=== PATIENT | female | born 1945 | race Caucasian/White ===

== ENCOUNTER → 2016-08-14 | Outpatient (CLI) | payer MEDICARE, OTHER ==
[~2016-08-14] MED LIST: Iopamidol 755 MG/ML 500 ML Multipack Bottle IVPUSH STA
--- NOTE | 2016-08-14 18:31 | CT ---
EXAMINATION: CT chest, abdomen and pelvis contrast HISTORY: Malignant neoplasm of the uterus COMPARISON: None TECHNIQUE: Axial CT images obtained through the chest, abdomen, and pelvis following the administrat ion of 100 mL of Isovue-370 in the right antecubital fossa. Coronal and sagittal reconstructions obt ained. FINDINGS: Chest: The lungs are clear without focal consolidation. No pleural effusion or pneumothorax. The hea rt is normal in size without a significant pericardial effusion. Mild coronary artery calcifications are noted. The thoracic aorta is normal in caliber. The main and central pulmonary arteries are pat ent. The central airways are clear. There is a right-sided portacatheter noted. Abdomen: The liver has a mildly nodular contour. Cholecystectomy clips are noted. The spleen and adr enal glands appear normal. The pancreas is normal. There is no bulky retroperitoneal lymphadenopathy or abdominal ascites. The kidneys enhance and function symmetrically without evidence of obstructive uropathy. Pelvis: The large and small bowel are normal in caliber without evidence of obstruction. Mild divert iculosis without evidence of diverticulitis. The appendix appears normal. No bulky pelvic lymphadeno karon or free pelvic fluid. Hysterectomy. The urinary bladder is mostly decompressed. No suspicious osseous abnormalities. IMPRESSION: 1. Findings within the chest, abdomen, or pelvis. 2. No evidence of recurrent or metastatic disease. 3. Mild diverticulosis without evidence of diverticulitis.
== END ==
LOC: MW.CT 10:27
PROVIDERS: ATTEND Internal Medicine Hematology & Oncology
DX: C55 Malignant neoplasm of uterus, part unspecified (principal); K57.90 Diverticulosis of intestine, part unspecified, without perforation or abscess without bleeding
CPT/HCPCS: 71260; 74177; Q9967

== ENCOUNTER 2018-05-09 06:20 | Day surgery (SDC) | payer MEDICARE, OTHER ==
[~2018-05-09 06:20] MED LIST changes: +Clindamycin Phosphate in D5W 600 MG in Premix Bag 50 BAG IV ONE; -Iopamidol 755 MG/ML 500 ML Multipack Bottle IVPUSH STA; +Lactated Ringers 1,000 ML IV SCH; +Sodium Chloride 0.9% 10 ML Syringe FLUSH PRN; +Sodium Chloride 0.9% 2.5 ML Syringe FLUSH PRN
[2018-05-09] MEDS ORDERED: Clindamycin Phosphate in D5W 50 ML ONE (06:58)
--- NOTE | 2018-05-09 07:16 | PCM.PREANE ---
Preanesthetic Assessment - Anesthesia/Transfusion/Family Hx Anesthesia History: Prior Anesthesia Without Reaction Family History of Anesthesia Reaction: No Transfusion History: Prior Transfusion Without Reaction Intubation History: Unknown - Review of Systems General: No Symptoms Pulmonary: No Symptoms Cardiovascular: No Symptoms Gastrointestinal: No Symptoms Neurological: No Symptoms Other: Reports: None - Physical Assessment O2 Sat by Pulse Oximetry: 97 Respiratory Rate: 16 Vital Signs: Last Vital Signs Temp 36.2 C 05/09/18 06:52 Pulse 90 05/09/18 06:52 Resp 16 05/09/18 06:52 BP 133/75 05/09/18 06:52 Pulse Ox 97 05/09/18 06:52 Height: 1.57 m Weight: 80.286 kg ASA Class: 3 Mental Status: Alert & Oriented x3 Airway Class: Mallampati = 2 Dentition: Reports: Normal Dentition, [place](s) (multiple on back side) Thyro-Mental Finger Breadths: 3 Mouth Opening Finger Breadths: 2 ROM/Head Extension: Limited/Partial Lungs: Clear to Auscultation, Normal Respiratory Effort Cardiovascular: Regular Rate, Regular Rhythm - Lab Values: Laboratory Last Values POC Glucose 157 mg/dL (60-110) H 05/09/18 06:48 - Allergies Allergies/Adverse Reactions: Allergies Allergy/AdvReac Type Severity Reaction Status Date / Time acetaminophen [From Percocet] Allergy Cannot Verified 05/08/18 08:10 Remember meperidine [From Demerol] Allergy Headache Verified 05/07/18 07:58 oxycodone [From Percocet] Allergy Cannot Verified 05/08/18 08:10 Remember Penicillins Allergy Other Verified 05/07/18 07:58 - Blood Blood Available: No - Anesthesia Plan Pre-Op Medication Ordered: None - Acknowledgements Anesthesia Type Planned: MAC Pt an Appropriate Candidate for the Planned Anesthesia: Yes Alternatives and Risks of Anesthesia Discussed w Pt/Guardian: Yes Pt/Guardian Understands and Agrees with Anesthesia Plan: Yes PreAnesthesia Questionnaire HEENT History: Reports: Other (See Below) Other HEENT History: wears glasses Cardiovascular History: Reports: Hypertension Respiratory History: Reports: COPD, Sleep Apnea, Other (See Below) Other Respiratory History: not useing CPAP at present as it is not working, denies COPD, smokes less than 1/2 pk per day Gastrointestinal History: Reports: Hepatitis 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, has been treated Genitourinary History: Reports: None 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: Musculoskeletal History: Reports: Arthritis, Fracture Other Musculoskeletal History: hx of fx left hand Neurological History: Reports: None Psychiatric History: Reports: Depression Endocrine/Metabolic History: Reports: Diabetes, Type II (A1c around 7), Hypothyroidism, Obesity/BMI 30+ Hematologic History: Reports: Blood Transfusion(s) Immunologic History: Reports: None Oncologic (Cancer) History: Reports: Uterine Dermatologic History: Reports: None - Infectious Disease History Infectious Disease History: Reports: Chicken Pox, Hepatitis non A,B,C, Influenza , Measles, Mumps - Past Surgical History Head Surgeries/Procedures: Reports: None HEENT Surgical History: Reports: Cataract Surgery, Tonsillectomy Other HEENT Surgeries/Procedures: cataract surgery 05/07/18 Cardiovascular Surgical History: Reports: None Respiratory Surgical History: Reports: None GI Surgical History: Reports: Cholecystectomy Female Surgical History: Reports: Breast Biopsy, D&C, Hysterectomy, Salpingo- Oophorectomy Other Female Surgeries/Procedures: Omentumectomy, pelvic lymph node dissection Endocrine Surgical History: Reports: None Neurological Surgical History: Reports: None Musculoskeletal Surgical History: Reports: Carpal Tunnel, Knee Replacement, Shoulder Surgery Other Musculoskeletal Surgeries/Procedures:: left TKA, right RTCR, bilateral bunionectomy Oncologic Surgical History: Reports: Biopsy of Breast, Other (See Below) Other Oncologic Surgeries/Procedures: hysterectomy, BSO, omentumectomy, lymph node dissection Dermatological Surgical History: Reports: None - SUBSTANCE USE Smoking Status *Q: Light Tobacco Smoker Tobacco Use Within Last Twelve Months: Cigarettes Recreational Drug Use History: No - HOME MEDS Home Medications: Home Meds Furosemide [Lasix] 20 mg PO DAILY 04/29/16 [History] Hydrochlorothiazide 25 mg PO DAILY 04/29/16 [History] Insulin Aspart [NovoLOG] 5 unit SUBCUT DAILY 04/29/16 [History] Insulin Detemir [Levemir] 10 unit SQ DAILY 04/29/16 [History] Levothyroxine [Synthroid] 100 mcg PO DAILY 04/29/16 [History] PARoxetine [Paxil] 40 mg PO DAILY 04/29/16 [History] SitaGLIPtin [Januvia] 100 mg PO DAILY 04/29/16 [History] Spironolactone [Aldactone] 25 mg PO DAILY 04/29/16 [History] azaTHIOprine [Azathioprine] 50 mg PO DAILY 04/29/16 [History] Enoxaparin Sodium [Lovenox] 1 injection SUBCUT DAILY 05/07/18 [History] - CURRENT (IN HOUSE) MEDS Current Meds: Current Medications Lactated Ringer's (Ringers, Lactated) 1,000 mls @ 125 mls/hr IV ASDIRECTED MILAGROS Last Admin: 05/09/18 06:56 Dose: 125 mls/hr Sodium Chloride (Saline Flush) 10 ml FLUSH ASDIRECTED PRN PRN Reason: Keep Vein Open Sodium Chloride (Saline Flush) 2.5 ml FLUSH ASDIRECTED PRN PRN Reason: Keep Vein Open Discontinued Medications Clindamycin Phosphate 600 mg/ (Premix) 50 mls @ 100 mls/hr IV ONETIME ONE Stop: 05/06/18 09:13 Clindamycin Phosphate (Cleocin In D5w) Confirm Administered Dose 50 mls @ as directed .ROUTE .STK-MED ONE Stop: 05/09/18 06:59
[2018-05-09] MEDS ORDERED: Lidocaine 2% 5 ML SDV ONE (07:26)
[2018-05-09] MEDS ORDERED: Propofol 200 MG/20 ML SDV ONE (07:26)
[2018-05-09] MEDS ORDERED: Lidocaine 1% 20 ML MDV ONE (07:26)
[2018-05-09] MEDS ORDERED: Bupivacaine 0.5% 10 ML SDV ONE (07:37)
[2018-05-09] MEDS ORDERED: Octyl 2-Cyanoacrylate 1 Tube ONE (08:40)
--- NOTE | 2018-05-09 09:02 | PCM.OPNOTE ---
- General Post-Op/Procedure Note Date of Surgery/Procedure: 05/09/18 Operative Procedure(s): Right port a cath removal Findings: RIJ port a cath intact Pre Op Diagnosis: Port a cath dysfunction Post-Op Diagnosis: same Anesthesia Technique: MAC Primary Surgeon: Jess Fajardo Condition: Good
[2018-05-09 09:42] VITALS: BP 136/69
--- NOTE | 2018-05-09 18:59 | OR ---
SURGEON: YOSELYN MICHAEL MD DATE OF PROCEDURE: 05/09/2018 PREOPERATIVE DIAGNOSIS: Port-A-Cath dysfunction. POSTOPERATIVE DIAGNOSIS: Port-A-Cath dysfunction. PROCEDURE PERFORMED: Removal of right internal jugular Port-A-Cath. ANESTHESIA: MAC. ESTIMATED BLOOD LOSS: 5 mL. FINDINGS: Removal of right internal jugular Port-A-Cath. COMPLICATIONS: None. INDICATIONS: The patient is a 72-year-old female who had right internal jugular Port-A-Cath placed for chemotherapy. She is no longer on chemotherapy and the port is no longer functioning. The decision was made to remove it. I explained the procedure, expected perioperative course, and risks including bleeding, infection, or damage to surrounding structures. The patient verbalized understanding and wishes to proceed. PROCEDURE IN DETAIL: The patient was brought into the OR and placed on the OR table in supine position. A time-out was completed verifying the patient's name, age, date of , allergies, and procedure to be performed. Monitored anesthesia care was induced. The right neck and chest were prepped and draped in usual standard fashion. I anesthetized the area overlying the Port-A-Cath device with 1% lidocaine plain. A 15 blade was used to make an incision over the patient's scar. Cautery was used to dissect down to the level of the subcutaneous fat. I immediately encountered the scar capsule around Port-A-Cath device. The scar capsule was taken down using Metzenbaum scissors as well as cautery. Once the port was freed from the surrounding tissue. I applied gentle pressure and removed the Port-A-Cath tubing from the internal jugular vein. The port was completely removed and placed on the back table. Pressure was held over the right internal jugular vein for approximately one minute. I then inspected the Port-A-Cath device and it appeared to be intact. Cautery was used to achieve hemostasis at the right chest wall site. I then closed the subcutaneous fat layer with interrupted 3-0 Vicryl sutures. I closed the skin with a running 4-0 Monocryl stitch. I placed Dermabond over the top of the incision and placed a sterile dressing over the top of that. The patient tolerated the procedure well and was taken to PACU in stable condition. All counts were complete and correct at the end of the case. CAMI / KEZIA /[id number]
== END 2018-05-09 09:40 | disposition home or self-care (01) ==
LOC: MW.SDS 06:20
PROVIDERS: ATTEND Surgery
DX: T82.514A Breakdown (mechanical) of infusion catheter, initial encounter (principal); C54.1 Malignant neoplasm of endometrium; I10 Essential (primary) hypertension; J44.9 Chronic obstructive pulmonary disease, unspecified; E03.9 Hypothyroidism, unspecified; E11.9 Type 2 diabetes mellitus without complications; E66.9 Obesity, unspecified; Z68.32 Body mass index [BMI] 32.0-32.9, adult; G47.30 Sleep apnea, unspecified; Z99.89 Dependence on other enabling machines and devices; F32.9 Major depressive disorder, single episode, unspecified; M19.90 Unspecified osteoarthritis, unspecified site; Z79.84 Long term (current) use of oral hypoglycemic drugs; Z79.890 Hormone replacement therapy; Z79.899 Other long term (current) drug therapy; Z88.0 Allergy status to penicillin; Z88.5 Allergy status to narcotic agent; Z88.6 Allergy status to analgesic agent; Z87.891 Personal history of nicotine dependence
CPT/HCPCS: 36590; 82962; A9270; J2001; J2704; J3490; J7120

== ENCOUNTER 2018-09-18 09:43 | Inpatient (IN) | payer MEDICARE, OTHER ==
[2018-09-18] MEDS ORDERED: Sodium Chloride 0.9% 1,000 ML IV ONE (09:59)
[2018-09-18] MEDS ORDERED: Sodium Chloride 0.9% 10 ML Syringe FLUSH PRN (09:59)
[2018-09-18] MEDS ORDERED: Sodium Chloride 0.9% 2.5 ML Syringe FLUSH PRN (09:59)
--- NOTE | 2018-09-18 10:12 | EDM.PDOC ---
ED HPI GENERAL MEDICAL PROBLEM - General Chief Complaint: Gastrointestinal Problem Stated Complaint: WEAKNESS Time Seen by Provider: 09/18/18 09:55 - History of Present Illness INITIAL COMMENTS - FREE TEXT/NARRATIVE: HISTORY AND PHYSICAL: History of present illness: Patient is 73-year-old white female history of advanced metastatic uterine cancer presents a concern of generalized weakness she's had associated nausea vomiting diarrhea she denies fever chills denies abdominal pain denies chest pain. Review of systems: As per history of present illness and below otherwise all systems reviewed and negative. Past medical history: As per history of present illness and as reviewed below otherwise noncontributory. Surgical history: As per history of present illness and as reviewed below otherwise noncontributory. Social history: No reported history of drug or alcohol abuse. Family history: As per history of present illness and as reviewed below otherwise noncontributory. Physical exam: HEENT: Atraumatic, normocephalic, pupils reactive, negative for conjunctival pallor or scleral icterus, mucous membranes dry, throat clear, neck supple, nontender, trachea midline. Lungs: Clear to auscultation, breath sounds equal bilaterally, chest nontender. Heart: S1S2, regular, negative for clicks, rubs, or JVD. Abdomen: Soft, nondistended, no localized tenderness. Negative for masses or hepatosplenomegaly. Negative for costovertebral tenderness. Pelvis: Stable nontender. Genitourinary: Deferred. Rectal: Deferred. Extremities: Atraumatic, negative for cords or calf pain. Neurovascular unremarkable. Neuro: Awake, alert, oriented. Follows commands moves all extremities limited grossly nonfocal exam. Diagnostics: CBC CMP troponin UA blood culture 2 lactic acid acute abdominal series with chest x-ray stool for C&S O&P C. difficile EKG Therapeutics: Saline 1 L bolus Impression: #1 history of advanced uterine cancer with metastasis #2 generalized weakness # 3 vomiting/diarrhea Definitive disposition and diagnosis as appropriate pending reevaluation and review of above. - Related Data Allergies Allergy/AdvReac Type Severity Reaction Status Date / Time acetaminophen [From Percocet] Allergy Cannot Verified 09/18/18 09:45 Remember meperidine [From Demerol] Allergy Headache Verified 09/18/18 09:45 oxycodone [From Percocet] Allergy Cannot Verified 09/18/18 09:45 Remember Penicillins Allergy Other Verified 09/18/18 09:45 Home Meds: Home Meds Furosemide [Lasix] 20 mg PO DAILY 04/29/16 [History] Hydrochlorothiazide 25 mg PO DAILY 04/29/16 [History] Insulin Aspart [NovoLOG] 0 - 5 unit SUBCUT BIDAC 04/29/16 [History] Insulin Detemir [Levemir] 55 unit SQ DAILY 04/29/16 [History] Levothyroxine [Synthroid] 100 mcg PO DAILY 04/29/16 [History] PARoxetine [Paxil] 20 mg PO DAILY 04/29/16 [History] SitaGLIPtin [Januvia] 100 mg PO DAILY 04/29/16 [History] Spironolactone [Aldactone] 25 mg PO BID 04/29/16 [History] azaTHIOprine [Azathioprine] 100 mg PO DAILY 04/29/16 [History] Acetaminophen [Tylenol Extra Strength] 500 mg PO TID PRN 09/18/18 [History] Acetaminophen with Codeine [Tylenol with Codeine #3 Tablet] 1 - 2 tab PO Q4H PRN 09/18/18 [History] Acetaminophen/Diphenhydramine [Tylenol Pm Ex-Strength Caplet] 1 - 2 tab PO BEDTIME PRN 09/18/18 [History] Milk Thistle 1 cap PO DAILY 09/18/18 [History] Ondansetron [Zofran ODT] 4 mg PO Q8H PRN 09/18/18 [History] Past Medical History HEENT History: Reports: Other (See Below) Other HEENT History: wears glasses Cardiovascular History: Reports: Hypertension Respiratory History: Reports: COPD, Sleep Apnea, Other (See Below) Other Respiratory History: not useing CPAP at present as it is not working, denies COPD, smokes less than 1/2 pk per day Gastrointestinal History: Reports: Hepatitis 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, has been treated Genitourinary History: Reports: 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: Musculoskeletal History: Reports: Arthritis, Fracture Other Musculoskeletal History: hx of fx left hand Neurological History: Reports: None Psychiatric History: Reports: Depression Endocrine/Metabolic History: Reports: Diabetes, Type II (A1c around 7), Hypothyroidism, Obesity/BMI 30+ Hematologic History: Reports: Blood Transfusion(s) Immunologic History: Reports: None Oncologic (Cancer) History: Reports: Uterine Dermatologic History: Reports: None - Infectious Disease History Infectious Disease History: Reports: Chicken Pox, Hepatitis non A,B,C, Influenza , Measles, Mumps - Past Surgical History Head Surgeries/Procedures: Reports: None HEENT Surgical History: Reports: Cataract Surgery, Tonsillectomy Other HEENT Surgeries/Procedures: cataract surgery 05/07/18 Cardiovascular Surgical History: Reports: None Respiratory Surgical History: Reports: None GI Surgical History: Reports: Cholecystectomy Female Surgical History: Reports: Breast Biopsy, D&C, Hysterectomy, Salpingo- Oophorectomy Other Female Surgeries/Procedures: Omentumectomy, pelvic lymph node dissection Endocrine Surgical History: Reports: None Neurological Surgical History: Reports: None Musculoskeletal Surgical History: Reports: Carpal Tunnel, Knee Replacement, Shoulder Surgery Other Musculoskeletal Surgeries/Procedures:: left TKA, right RTCR, bilateral bunionectomy Oncologic Surgical History: Reports: Biopsy of Breast, Other (See Below) Other Oncologic Surgeries/Procedures: hysterectomy, BSO, omentumectomy, lymph node dissection Dermatological Surgical History: Reports: None Social & Family History - Family History Family Medical History: Noncontributory HEENT: Reports: Impaired Vision Cardiac: Reports: Heart Failure OBGYN: Reports: Musculoskeletal: Reports: Other (See Below) Other Musculoskeletal Family History: polio Endocrine/Metabolic: Reports: Diabetes, type II Oncologic: Reports: Prostate, Uterine - Caffeine Use Caffeine Use: Reports: Coffee ED ROS GENERAL - Review of Systems Review Of Systems: ROS reveals no pertinent complaints other than HPI. ED EXAM, GENERAL - Physical Exam Exam: See Below (dictation) Course - Vital Signs Last Recorded V/S: Last Vital Signs Temp 35.8 C 09/18/18 09:46 Pulse 102 H 09/18/18 09:46 Resp 18 09/18/18 09:46 BP 117/76 09/18/18 09:46 Pulse Ox 92 L 09/18/18 09:46 - Orders/Labs/Meds Orders: Active Orders 24 hr Category Date Time Status Cardiac Monitoring [RC] . DIRECTED Care 09/18/18 09:58 Active EKG Documentation Completion [RC] STAT Care 09/18/18 09:58 Active Oxygen Therapy, ED [RC] ASDIRECTED Care 09/18/18 09:58 Active CDIFF TOX A+B [OP] Stat Lab 09/18/18 11:15 Received CULTURE BLOOD [BC] Stat Lab 09/18/18 10:17 Received CULTURE BLOOD [BC] Stat Lab 09/18/18 10:26 Received CULTURE STOOL + CAMPY+SHIGATOX [RM] Stat Lab 09/18/18 11:15 Received UA RFX RENÉ AND CULT IF INDIC [URIN] Stat Lab 09/18/18 11:22 Ordered Levofloxacin/Dextrose 5%-Water [Levaquin in D5W 750 MG/ Med 09/18/18 11:33 Active 150 ML] 750 mg Premix Bag 1 bag IV ONETIME Sodium Chloride 0.9% [Saline Flush] Med 09/18/18 09:59 Active 10 ml FLUSH ASDIRECTED PRN Sodium Chloride 0.9% [Saline Flush] Med 09/18/18 09:59 Active 2.5 ml FLUSH ASDIRECTED PRN Blood Culture x2 Reflex Set [OM.PC] Stat Ot 09/18/18 09:58 Ordered Isolation [COMM] Stat Ot 09/18/18 10:09 Ordered Saline Lock Insert [OM.PC] Stat Ot 09/18/18 09:58 Ordered Medication Orders Levofloxacin/Dextrose 750 mg/ (Premix) 150 mls @ 100 mls/hr IV ONETIME ONE Stop: 09/18/18 13:02 Sodium Chloride (Saline Flush) 10 ml FLUSH ASDIRECTED PRN PRN Reason: Keep Vein Open Last Admin: 09/18/18 10:31 Dose: 10 ml Sodium Chloride (Saline Flush) 2.5 ml FLUSH ASDIRECTED PRN PRN Reason: Keep Vein Open Last Admin: 09/18/18 10:31 Dose: 2.5 ml Labs: Laboratory Tests 09/18/18 09/18/18 09/18/18 Range/Units 09:58 09:58 09:58 WBC 2.04 L (4.0-11.0) K/uL RBC 3.67 L (4.30-5.90) M/uL Hgb 12.8 (12.0-16.0) g/dL Hct 37.9 (36.0-46.0) % MCV 103.3 H (80.0-98.0) fL MCH 34.9 H (27.0-32.0) pg MCHC 33.8 (31.0-37.0) g/dL RDW Std Deviation 57.3 (28.0-62.0) fl RDW Coeff of Ashlee 15 (11.0-15.0) % Plt Count 204 (150-400) K/uL MPV 11.80 (7.40-12.00) fL Neut % (Auto) 67.2 (48.0-80.0) % Lymph % (Auto) 17.6 (16.0-40.0) % [place] % (Auto) 8.8 (0.0-15.0) % Eos % (Auto) 5.9 (0.0-7.0) % Baso % (Auto) 0.5 (0.0-1.5) % Neut # (Auto) 1.4 (1.4-5.7) K/uL Lymph # (Auto) 0.4 L (0.6-2.4) K/uL [place] # (Auto) 0.2 (0.0-0.8) K/uL Eos # (Auto) 0.1 (0.0-0.7) K/uL Baso # (Auto) 0.0 (0.0-0.1) K/uL Nucleated RBC % 0.0 /100WBC Nucleated RBCs # 0 K/uL INR 0.98 Lactate (0.20-2.00) mmol/L Sodium 127 L (136-145) mmol/L Potassium 3.6 (3.5-5.1) mmol/L Chloride 91 L (98-107) mmol/L Carbon Dioxide 23.3 (21.0-32.0) mmol/L BUN 57 H (7.0-18.0) mg/dL Creatinine 1.5 H (0.6-1.0) mg/dL Est Cr Clr Drug Dosing 26.42 mL/min Estimated GFR (MDRD) 34.0 ml/min Glucose 163 H (74-106) mg/dL Calcium 9.0 (8.5-10.1) mg/dL Total Bilirubin 0.5 (0.2-1.0) mg/dL AST 16 (15-37) IU/L ALT 12 L (14-63) IU/L Alkaline Phosphatase 122 H (46-116) U/L Troponin I < 0.050 (0.000-0.056) ng/mL B-Natriuretic Peptide (<100) PG/ML Total Protein 8.1 (6.4-8.2) g/dL Albumin 2.7 L (3.4-5.0) g/dL Globulin 5.4 H (2.6-4.0) g/dL Albumin/Globulin Ratio 0.5 L (0.9-1.6) 09/18/18 09/18/18 Range/Units 09:58 09:58 WBC (4.0-11.0) K/uL RBC (4.30-5.90) M/uL Hgb (12.0-16.0) g/dL Hct (36.0-46.0) % MCV (80.0-98.0) fL MCH (27.0-32.0) pg MCHC (31.0-37.0) g/dL RDW Std Deviation (28.0-62.0) fl RDW Coeff of Ashlee (11.0-15.0) % Plt Count (150-400) K/uL MPV (7.40-12.00) fL Neut % (Auto) (48.0-80.0) % Lymph % (Auto) (16.0-40.0) % [place] % (Auto) (0.0-15.0) % Eos % (Auto) (0.0-7.0) % Baso % (Auto) (0.0-1.5) % Neut # (Auto) (1.4-5.7) K/uL Lymph # (Auto) (0.6-2.4) K/uL [place] # (Auto) (0.0-0.8) K/uL Eos # (Auto) (0.0-0.7) K/uL Baso # (Auto) (0.0-0.1) K/uL Nucleated RBC % /100WBC Nucleated RBCs # K/uL INR Lactate 1.4 (0.20-2.00) mmol/L Sodium (136-145) mmol/L Potassium (3.5-5.1) mmol/L Chloride (98-107) mmol/L Carbon Dioxide (21.0-32.0) mmol/L BUN (7.0-18.0) mg/dL Creatinine (0.6-1.0) mg/dL Est Cr Clr Drug Dosing mL/min Estimated GFR (MDRD) ml/min Glucose (74-106) mg/dL Calcium (8.5-10.1) mg/dL Total Bilirubin (0.2-1.0) mg/dL AST (15-37) IU/L ALT (14-63) IU/L Alkaline Phosphatase (46-116) U/L Troponin I (0.000-0.056) ng/mL B-Natriuretic Peptide 6 (<100) PG/ML Total Protein (6.4-8.2) g/dL Albumin (3.4-5.0) g/dL Globulin (2.6-4.0) g/dL Albumin/Globulin Ratio (0.9-1.6) Meds: Medications Generic Name Dose Route Start Last Admin Trade Name Freq PRN Reason Stop Dose Admin Levofloxacin/Dextrose 750 mg/ 150 mls @ 100 mls/hr 09/18/18 11:33 Premix IV 09/18/18 13:02 ONETIME ONE Sodium Chloride 10 ml 09/18/18 09:59 09/18/18 10:31 Saline Flush FLUSH 10 ml ASDIRECTED PRN Administration Keep Vein Open Sodium Chloride 2.5 ml 09/18/18 09:59 09/18/18 10:31 Saline Flush FLUSH 2.5 ml ASDIRECTED PRN Administration Keep Vein Open Discontinued Medications Generic Name Dose Route Start Last Admin Trade Name Freq PRN Reason Stop Dose Admin Sodium Chloride 1,000 mls @ 999 mls/hr 09/18/18 09:59 09/18/18 10:31 Normal Saline IV 09/18/18 10:59 999 mls/hr STAT ONE Administration Departure - Departure Time of Disposition: 11:37 Disposition: Admitted As Inpatient 66 Condition: Fair Clinical Impression: Weakness, Dehydration, Uterine cancer, Pneumonia, Enteritis - Discharge Information Forms: ED Department Discharge - My Orders Last 24 Hours: My Active Orders 09/18/18 09:58 Cardiac Monitoring [RC] . DIRECTED EKG Documentation Completion [RC] STAT Oxygen Therapy, ED [RC] ASDIRECTED Blood Culture x2 Reflex Set [OM.PC] Stat Saline Lock Insert [OM.PC] Stat 09/18/18 09:59 Sodium Chloride 0.9% [Saline Flush] 10 ml FLUSH ASDIRECTED PRN Sodium Chloride 0.9% [Saline Flush] 2.5 ml FLUSH ASDIRECTED PRN 09/18/18 10:09 Isolation [COMM] Stat 09/18/18 10:17 CULTURE BLOOD [BC] Stat 09/18/18 10:26 CULTURE BLOOD [BC] Stat 09/18/18 11:15 CDIFF TOX A+B [OP] Stat CULTURE STOOL + CAMPY+SHIGATOX [RM] Stat 09/18/18 11:22 UA RFX RENÉ AND CULT IF INDIC [URIN] Stat 09/18/18 11:33 Levofloxacin/Dextrose 5%-Water [Levaquin in D5W 750 MG/150 ML] 750 mg Premix Bag 1 bag IV ONETIME - Assessment/Plan Last 24 Hours: My Active Orders 09/18/18 09:58 Cardiac Monitoring [RC] . DIRECTED EKG Documentation Completion [RC] STAT Oxygen Therapy, ED [RC] ASDIRECTED Blood Culture x2 Reflex Set [OM.PC] Stat Saline Lock Insert [OM.PC] Stat 09/18/18 09:59 Sodium Chloride 0.9% [Saline Flush] 10 ml FLUSH ASDIRECTED PRN Sodium Chloride 0.9% [Saline Flush] 2.5 ml FLUSH ASDIRECTED PRN 09/18/18 10:09 Isolation [COMM] Stat 09/18/18 10:17 CULTURE BLOOD [BC] Stat 09/18/18 10:26 CULTURE BLOOD [BC] Stat 09/18/18 11:15 CDIFF TOX A+B [OP] Stat CULTURE STOOL + CAMPY+SHIGATOX [RM] Stat 09/18/18 11:22 UA RFX RENÉ AND CULT IF INDIC [URIN] Stat 09/18/18 11:33 Levofloxacin/Dextrose 5%-Water [Levaquin in D5W 750 MG/150 ML] 750 mg Premix Bag 1 bag IV ONETIME
[2018-09-18 10:44] LABS: CHLORIDE,CL 91 mmol/L (98-107); SODIUM,NA 127 mmol/L (136-145)
--- NOTE | 2018-09-18 11:13 | CR ---
EXAMINATION: PA chest and abdomen HISTORY: Pain. FINDINGS: The trachea is midline. The heart is normal in size. There is a right-sided portacatheter. Right basilar atelectasis and/or consolidation with a small right pleural effusion. There is a nonobstructive wall gas pattern. No organomegaly or abnormal calcifications. Cholecystectomy clips are noted. No free air under the diaphragm. IMPRESSION: 1. Right basilar consolidation with a small right pleural effusion.
[2018-09-18] MEDS ORDERED: Levofloxacin/Dextrose 5%-Water 750 MG in Premix Bag 1 BAG IV ONE (11:33)
[2018-09-18] MEDS ORDERED: Docusate Sodium 100 MG Cap PO PRN (12:20)
[2018-09-18] MEDS ORDERED: Ondansetron 4 MG Tab.DIS PO PRN (12:20)
[2018-09-18] MEDS ORDERED: oxyCODONE 5 MG Tab PO PRN (12:20)
--- NOTE | 2018-09-18 12:26 | PCM.HP ---
H&P History of Present Illness - General Date of Service: 09/18/18 Admit Problem/Dx: Admission Diagnosis/Problem Admission Diagnosis/Problem Weakness, dehydration, advanced uterine cancer , nausea vomiting, chemotherapy Source of Information: Patient History Limitations: Reports: No Limitations - History of Present Illness Initial Comments - Free Text/Narative: The patient is a 73-year-old lady who had presented to the emergency department out of concern for weakness, nausea and vomiting and diarrhea. The patient has advanced uterine cancer and last had chemotherapy 5 days ago. The patient says that she has not had anything solid to eat in the past several days. The patient also has been not able to drink very much as well. The patient says that she has been having generalized pain for now. She has denied any fever or chills. She has had a cough. The patient says that she has uterine cancer which has metastasized to her liver and to her lungs. The patient had received 1 L of fluid in the emergency department. Onset of Symptoms: Reports: Gradual Duration of Symptoms: Reports: Day(s): Location: Reports: Abdomen, Generalized Quality: Reports: Dull Severity: Mild Improves with: Reports: None Worsens with: Reports: None Context: Reports: Other (Chemotherapy) Associated Symptoms: Reports: Cough - Related Data Allergies/Adverse Reactions: Allergies Allergy/AdvReac Type Severity Reaction Status Date / Time acetaminophen [From Percocet] Allergy Cannot Verified 09/18/18 09:45 Remember meperidine [From Demerol] Allergy Headache Verified 09/18/18 09:45 oxycodone [From Percocet] Allergy Cannot Verified 09/18/18 09:45 Remember Penicillins Allergy Other Verified 09/18/18 09:45 Home Medications: Home Meds Furosemide [Lasix] 20 mg PO DAILY 04/29/16 [History] Hydrochlorothiazide 25 mg PO DAILY 04/29/16 [History] Insulin Aspart [NovoLOG] 0 - 5 unit SUBCUT BIDAC 04/29/16 [History] Insulin Detemir [Levemir] 55 unit SQ DAILY 04/29/16 [History] Levothyroxine [Synthroid] 100 mcg PO DAILY 04/29/16 [History] PARoxetine [Paxil] 20 mg PO DAILY 04/29/16 [History] SitaGLIPtin [Januvia] 100 mg PO DAILY 04/29/16 [History] Spironolactone [Aldactone] 25 mg PO BID 04/29/16 [History] azaTHIOprine [Azathioprine] 100 mg PO DAILY 04/29/16 [History] Acetaminophen [Tylenol Extra Strength] 500 mg PO TID PRN 09/18/18 [History] Acetaminophen with Codeine [Tylenol with Codeine #3 Tablet] 1 - 2 tab PO Q4H PRN 09/18/18 [History] Acetaminophen/Diphenhydramine [Tylenol Pm Ex-Strength Caplet] 1 - 2 tab PO BEDTIME PRN 09/18/18 [History] Milk Thistle 1 cap PO DAILY 09/18/18 [History] Ondansetron [Zofran ODT] 4 mg PO Q8H PRN 09/18/18 [History] Past Medical History HEENT History: Reports: Other (See Below) Other HEENT History: wears glasses Cardiovascular History: Reports: Hypertension Respiratory History: Reports: COPD, Sleep Apnea, Other (See Below) Other Respiratory History: not useing CPAP at present as it is not working, denies COPD, smokes less than 1/2 pk per day Gastrointestinal History: Reports: Hepatitis 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, has been treated Genitourinary History: Reports: None [place] History: Reports: Musculoskeletal History: Reports: Arthritis, Fracture Other Musculoskeletal History: hx of fx left hand Neurological History: Reports: None Psychiatric History: Reports: Depression Endocrine/Metabolic History: Reports: Diabetes, Type II (A1c around 7), Hypothyroidism, Obesity/BMI 30+ Hematologic History: Reports: Blood Transfusion(s) Immunologic History: Reports: None Oncologic (Cancer) History: Reports: Uterine Dermatologic History: Reports: None - Infectious Disease History Infectious Disease History: Reports: Chicken Pox, Hepatitis non A,B,C, Influenza , Measles, Mumps - Past Surgical History Head Surgeries/Procedures: Reports: None HEENT Surgical History: Reports: Cataract Surgery, Tonsillectomy Other HEENT Surgeries/Procedures: cataract surgery 05/07/18 Cardiovascular Surgical History: Reports: None Respiratory Surgical History: Reports: None GI Surgical History: Reports: Cholecystectomy Female Surgical History: Reports: Breast Biopsy, D&C, Hysterectomy, Salpingo- Oophorectomy Other Female Surgeries/Procedures: Omentumectomy, pelvic lymph node dissection Endocrine Surgical History: Reports: None Neurological Surgical History: Reports: None Musculoskeletal Surgical History: Reports: Carpal Tunnel, Knee Replacement, Shoulder Surgery Other Musculoskeletal Surgeries/Procedures:: left TKA, right RTCR, bilateral bunionectomy Oncologic Surgical History: Reports: Biopsy of Breast, Other (See Below) Other Oncologic Surgeries/Procedures: hysterectomy, BSO, omentumectomy, lymph node dissection Dermatological Surgical History: Reports: None Social & Family History - Family History Family Medical History: Noncontributory HEENT: Reports: Impaired Vision Cardiac: Reports: Heart Failure OBGYN: Reports: Musculoskeletal: Reports: Other (See Below) Other Musculoskeletal Family History: polio Endocrine/Metabolic: Reports: Diabetes, type II Oncologic: Reports: Prostate, Uterine - Tobacco Use Smoking Status *Q: Current Every Day Smoker Years of Tobacco use: 60 Packs/Tins Daily: 0.3 - Caffeine Use Caffeine Use: Reports: Coffee - Recreational Drug Use Recreational Drug Use: No - Living Situation & Occupation Living situation: Reports: , with Spouse Occupation: Retired H&P Review of Systems - Review of Systems: Review Of Systems: See Below General: Reports: Weakness HEENT: Reports: No Symptoms Pulmonary: Reports: Shortness of Breath, Cough Cardiovascular: Reports: No Symptoms Gastrointestinal: Reports: Abdominal Pain, Diarrhea, Nausea, Vomiting Genitourinary: Reports: No Symptoms Musculoskeletal: Reports: No Symptoms Skin: Reports: No Symptoms Psychiatric: Reports: No Symptoms Neurological: Reports: No Symptoms Hematologic/Lymphatic: Reports: No Symptoms Immunologic: Reports: No Symptoms Exam - Exam Exam: See Below - Vital Signs Vital Signs: Last Vital Signs Temp 35.8 C 09/18/18 09:46 Pulse 90 09/18/18 11:50 Resp 18 09/18/18 11:50 BP 125/84 09/18/18 11:50 Pulse Ox 94 L 09/18/18 11:50 Weight: 76.657 kg - Exam Quality Assessment: No: Supplemental Oxygen General: Alert, Oriented, Cooperative, Mild Distress HEENT: Conjunctiva Clear, EACs Clear, EOMI, Pupils Equal, PERRLA. No: Mucosa Moist & [place] (Very dry) Neck: Supple, Trachea Midline Lungs: Clear to Auscultation, Normal Respiratory Effort Cardiovascular: Regular Rate, Regular Rhythm GI/Abdominal Exam: Normal Bowel Sounds, Soft, No Distention. No: Guarding, Rigid, Rebound Back Exam: Normal Inspection, Full Range of Motion Extremities: Normal Inspection, No Pedal Edema Skin: Warm, Dry, Intact Neurological: Cranial Nerves Intact Neuro Extensive - Mental Status: Alert, Oriented x3 Psychiatric: Alert, Normal Affect, Normal Mood - Patient Data Lab Results Last 24 hrs: Laboratory Results - last 24 hr 09/18/18 09/18/18 09/18/18 Range/Units 09:58 09:58 09:58 WBC 2.04 L (4.0-11.0) K/uL RBC 3.67 L (4.30-5.90) M/uL Hgb 12.8 (12.0-16.0) g/dL Hct 37.9 (36.0-46.0) % MCV 103.3 H (80.0-98.0) fL MCH 34.9 H (27.0-32.0) pg MCHC 33.8 (31.0-37.0) g/dL RDW Std Deviation 57.3 (28.0-62.0) fl RDW Coeff of Ashlee 15 (11.0-15.0) % Plt Count 204 (150-400) K/uL MPV 11.80 (7.40-12.00) fL Neut % (Auto) 67.2 (48.0-80.0) % Lymph % (Auto) 17.6 (16.0-40.0) % Turner % (Auto) 8.8 (0.0-15.0) % Eos % (Auto) 5.9 (0.0-7.0) % Baso % (Auto) 0.5 (0.0-1.5) % Neut # (Auto) 1.4 (1.4-5.7) K/uL Lymph # (Auto) 0.4 L (0.6-2.4) K/uL Turner # (Auto) 0.2 (0.0-0.8) K/uL Eos # (Auto) 0.1 (0.0-0.7) K/uL Baso # (Auto) 0.0 (0.0-0.1) K/uL Nucleated RBC % 0.0 /100WBC Nucleated RBCs # 0 K/uL INR 0.98 Lactate (0.20-2.00) mmol/L Sodium 127 L (136-145) mmol/L Potassium 3.6 (3.5-5.1) mmol/L Chloride 91 L (98-107) mmol/L Carbon Dioxide 23.3 (21.0-32.0) mmol/L BUN 57 H (7.0-18.0) mg/dL Creatinine 1.5 H (0.6-1.0) mg/dL Est Cr Clr Drug Dosing 26.42 mL/min Estimated GFR (MDRD) 34.0 ml/min Glucose 163 H (74-106) mg/dL Calcium 9.0 (8.5-10.1) mg/dL Total Bilirubin 0.5 (0.2-1.0) mg/dL AST 16 (15-37) IU/L ALT 12 L (14-63) IU/L Alkaline Phosphatase 122 H (46-116) U/L Troponin I < 0.050 (0.000-0.056) ng/mL B-Natriuretic Peptide (<100) PG/ML Total Protein 8.1 (6.4-8.2) g/dL Albumin 2.7 L (3.4-5.0) g/dL Globulin 5.4 H (2.6-4.0) g/dL Albumin/Globulin Ratio 0.5 L (0.9-1.6) 09/18/18 09/18/18 Range/Units 09:58 09:58 WBC (4.0-11.0) K/uL RBC (4.30-5.90) M/uL Hgb (12.0-16.0) g/dL Hct (36.0-46.0) % MCV (80.0-98.0) fL MCH (27.0-32.0) pg MCHC (31.0-37.0) g/dL RDW Std Deviation (28.0-62.0) fl RDW Coeff of Ashlee (11.0-15.0) % Plt Count (150-400) K/uL MPV (7.40-12.00) fL Neut % (Auto) (48.0-80.0) % Lymph % (Auto) (16.0-40.0) % Turner % (Auto) (0.0-15.0) % Eos % (Auto) (0.0-7.0) % Baso % (Auto) (0.0-1.5) % Neut # (Auto) (1.4-5.7) K/uL Lymph # (Auto) (0.6-2.4) K/uL Turner # (Auto) (0.0-0.8) K/uL Eos # (Auto) (0.0-0.7) K/uL Baso # (Auto) (0.0-0.1) K/uL Nucleated RBC % /100WBC Nucleated RBCs # K/uL INR Lactate 1.4 (0.20-2.00) mmol/L Sodium (136-145) mmol/L Potassium (3.5-5.1) mmol/L Chloride (98-107) mmol/L Carbon Dioxide (21.0-32.0) mmol/L BUN (7.0-18.0) mg/dL Creatinine (0.6-1.0) mg/dL Est Cr Clr Drug Dosing mL/min Estimated GFR (MDRD) ml/min Glucose (74-106) mg/dL Calcium (8.5-10.1) mg/dL Total Bilirubin (0.2-1.0) mg/dL AST (15-37) IU/L ALT (14-63) IU/L Alkaline Phosphatase (46-116) U/L Troponin I (0.000-0.056) ng/mL B-Natriuretic Peptide 6 (<100) PG/ML Total Protein (6.4-8.2) g/dL Albumin (3.4-5.0) g/dL Globulin (2.6-4.0) g/dL Albumin/Globulin Ratio (0.9-1.6) Result Diagrams: 09/18/18 09:58 09/18/18 09:58 Romero Results Last 24 hrs: Microbiology 09/18/18 11:15 Campylobacter Antigen Assay - Final Stool / Feces Positive Campylobacter Ag 09/18/18 11:15 Clostridium difficile Toxin A & B - Final Stool / Feces Negative for C.Diff Toxin/AG REFERENCE RANGE: NEGATIVE - Problem List (1) Campylobacter enteritis SNOMED Code(s): 80107662 ICD Code: A04.5 - CAMPYLOBACTER ENTERITIS Status: Acute Priority: High Current Visit: Yes (2) Dehydration SNOMED Code(s): 58463137 ICD Code: E86.0 - DEHYDRATION Status: Acute Priority: High Current Visit: Yes (3) Diabetes mellitus type 2, controlled SNOMED Code(s): 78488006, 856574099 ICD Code: E11.9 - TYPE 2 DIABETES MELLITUS WITHOUT COMPLICATIONS Status: Chronic Priority: High Current Visit: Yes Qualifiers: Diabetes mellitus custodial insulin use: without terminal gauger supervisor use Diabetes mellitus complication status: without complication Qualified Code(s): E11.9 - Type 2 diabetes mellitus without complications (4) Uterine cancer SNOMED Code(s): 313511886 ICD Code: C55 - MALIGNANT NEOPLASM OF UTERUS, PART UNSPECIFIED Status: Acute Current Visit: Yes Qualifiers: Malignant neoplasm of uterus location: unspecified site of uterus Qualified Code(s): C55 - Malignant neoplasm of uterus, part unspecified (5) Weakness SNOMED Code(s): 26381490 ICD Code: R53.1 - WEAKNESS Status: Acute Priority: High Current Visit: Yes Problem List Initiated/Reviewed/Updated: Yes Orders Last 24hrs: Active Orders 24 hr Category Date Time Status Patient Status [ADT] Stat ADT 09/18/18 11:40 Active Blood Glucose Check, Bedside [RC] WITHMEALSANDBED Care 09/18/18 12:20 Ordered Cardiac Monitoring [RC] . DIRECTED Care 09/18/18 09:58 Active Oxygen Therapy [RC] PRN Care 09/18/18 12:20 Ordered Up With Assistance [RC] ASDIRECTED Care 09/18/18 12:20 Ordered VTE/DVT Education [RC] PER UNIT ROUTINE Care 09/18/18 12:20 Ordered Vital Signs [RC] Q4H Care 09/18/18 12:20 Ordered Clear Liquid Diet [DIET] Diet 09/18/18 Dinner Ordered CBC WITH AUTO DIFF [HEME] AM Lab 09/19/18 05:11 Ordered COMPREHENSIVE METABOLIC PN,CMP [CHEM] AM Lab 09/19/18 05:11 Ordered CULTURE BLOOD [BC] Stat Lab 09/18/18 10:17 Received CULTURE BLOOD [BC] Stat Lab 09/18/18 10:26 Received CULTURE STOOL + CAMPY+SHIGATOX [RM] Stat Lab 09/18/18 11:15 Results UA RFX ROMERO AND CULT IF INDIC [URIN] Stat Lab 09/18/18 11:22 Ordered Acetaminophen [Tylenol] Med 09/18/18 12:20 Ordered 650 mg PO Q4H PRN Docusate Sodium [Colace] Med 09/18/18 12:20 Ordered 100 mg PO BID PRN Furosemide [Lasix] Med 09/19/18 09:00 Ordered 20 mg PO DAILY Heparin Sodium Med 09/18/18 12:30 Ordered 5,000 units SUBCUT Q8H Levofloxacin/Dextrose 5%-Water [Levaquin in D5W 750 MG/ Med 09/18/18 11:33 Active 150 ML] 750 mg Premix Bag 1 bag IV ONETIME Levothyroxine [Synthroid] Med 09/19/18 09:00 Ordered 100 mcg PO DAILY Ondansetron [Zofran ODT] Med 09/18/18 12:20 Ordered 4 mg PO Q6H PRN PARoxetine [Paxil] Med 09/19/18 09:00 Ordered 20 mg PO DAILY Sodium Chloride 0.9% [Saline Flush] Med 09/18/18 09:59 Active 10 ml FLUSH ASDIRECTED PRN Sodium Chloride 0.9% [Saline Flush] Med 09/18/18 09:59 Active 2.5 ml FLUSH ASDIRECTED PRN Spironolactone [Aldactone] Med 09/18/18 21:00 Ordered 25 mg PO BID Temazepam [Restoril] Med 09/18/18 12:20 Ordered 15 mg PO BEDTIME PRN azaTHIOprine [Imuran] Med 09/19/18 09:00 Ordered 100 mg PO DAILY hydroCHLOROthiazide Med 09/19/18 09:00 Ordered 25 mg PO DAILY oxyCODONE Med 09/18/18 12:20 Ordered 5 mg PO Q4H PRN Blood Culture x2 Reflex Set [OM.PC] Stat Ot 09/18/18 09:58 Ordered Isolation [COMM] Stat Ot 09/18/18 10:09 Ordered Saline Lock Insert [OM.PC] Stat Ot 09/18/18 09:58 Ordered Resuscitation Status Routine Resus Stat 09/18/18 12:20 Ordered Medication Orders Acetaminophen (Tylenol) 650 mg PO Q4H PRN PRN Reason: Pain (Mild 1-3)/fever Azathioprine (Imuran) 100 mg PO DAILY MILAGROS Docusate Sodium (Colace) 100 mg PO BID PRN PRN Reason: Constipation Furosemide (Lasix) 20 mg PO DAILY MILAGROS Heparin Sodium (Porcine) (Heparin Sodium) 5,000 units SUBCUT Q8H MILAGROS Hydrochlorothiazide (Hydrochlorothiazide) 25 mg PO DAILY MILAGROS Levofloxacin/Dextrose 750 mg/ (Premix) 150 mls @ 100 mls/hr IV ONETIME ONE Stop: 09/18/18 13:02 Last Admin: 09/18/18 11:50 Dose: 100 mls/hr Levothyroxine Sodium (Synthroid) 100 mcg PO DAILY MILAGROS Ondansetron HCl (Zofran Odt) 4 mg PO Q6H PRN PRN Reason: nausea, able to take PO Oxycodone HCl (Oxycodone) 5 mg PO Q4H PRN PRN Reason: Pain (moderate 4-6) Paroxetine HCl (Paxil) 20 mg PO DAILY MILAGROS Sodium Chloride (Saline Flush) 10 ml FLUSH ASDIRECTED PRN PRN Reason: Keep Vein Open Last Admin: 09/18/18 10:31 Dose: 10 ml Sodium Chloride (Saline Flush) 2.5 ml FLUSH ASDIRECTED PRN PRN Reason: Keep Vein Open Last Admin: 09/18/18 10:31 Dose: 2.5 ml Spironolactone (Aldactone) 25 mg PO BID MILAGROS Temazepam (Restoril) 15 mg PO BEDTIME PRN PRN Reason: Sleep Assessment/Plan Comment:: The patient is a 73-year-old lady who had been admitted from the emergency department as an inpatient secondary to intensity of care required for her treatment. Patient has been noted to be positive for Campylobacter enteritis and she will be continued on IV Levaquin for now. The patient will also have clear liquid diet as tolerated to help with her nausea and vomiting. I've also ordered the use of Zofran to help with her nausea and vomiting. The patient does take this at home. Physical therapy is also been ordered for the patient. The patient, when her diet is advanced, will be kept on appropriate ADA content. I've also ordered Accu-Cheks before meals and at bedtime. The patient will be kept on Accu-Cheks before meals and at bedtime. The patient is significantly dehydrated and she'll be aggressively fluid resuscitated here in hospital. The patient will also have DVT prophylaxis with the use of heparin 5000 units every 8 hours. Repeat laboratory studies have been ordered.
[2018-09-18] MEDS: Heparin Sodium 5,000 Units/ML Vial SUBCUT SCH ×2 (13:59→20:33)
[2018-09-18] MEDS: Sodium Chloride 0.9% 1,000 ML IV SCH (17:23)
[2018-09-18] MEDS: Insulin Aspart 100 Units/ML 3 ML Pen SUBCUT SCH (17:30)
[2018-09-18] MEDS: Spironolactone 25 MG Tab PO SCH (20:33)
[2018-09-19] MEDS: Temazepam 15 MG Cap PO PRN ×2 (00:20→20:42)
[2018-09-19] MEDS: Heparin Sodium 5,000 Units/ML Vial SUBCUT SCH ×3 (05:11→20:30)
[2018-09-19 06:15] LABS: CHLORIDE,CL 99 mmol/L (98-107); SODIUM,NA 130 mmol/L (136-145)
[2018-09-19] MEDS: Levothyroxine 100 MCG Tab PO SCH (06:40)
[2018-09-19] MEDS: Sodium Chloride 0.9% 1,000 ML IV SCH ×2 (06:42→19:42)
--- NOTE | 2018-09-19 07:54 | PCM.PN ---
- General Info Date of Service: 09/19/18 Admission Dx/Problem (Free Text): Admission Diagnosis/Problem Admission Diagnosis/Problem Weakness, dehydration, advanced uterine cancer , nausea vomiting, chemotherapy Subjective Update: The patient is a 73-year-old lady with been admitted yesterday out of concern for weakness, nausea and vomiting and diarrhea. The patient says that she still feels extremely weak and has had some diarrhea associated. The patient's last chemotherapy was approximately 6 days ago. - Review of Systems General: Reports: Weakness, Fatigue HEENT: Reports: No Symptoms Pulmonary: Reports: Shortness of Breath Cardiovascular: Reports: No Symptoms Gastrointestinal: Reports: No Symptoms Genitourinary: Reports: No Symptoms Musculoskeletal: Reports: No Symptoms Skin: Reports: No Symptoms Neurological: Reports: No Symptoms Psychiatric: Reports: No Symptoms - Patient Data Vitals - Most Recent: Last Vital Signs Temp 36.4 C 09/19/18 07:42 Pulse 96 09/19/18 07:42 Resp 16 09/19/18 07:42 BP 114/64 09/19/18 07:42 Pulse Ox 94 L 09/19/18 07:42 Weight - Most Recent: 76.657 kg I&O - Last 24 Hours: Intake & Output 09/18/18 09/19/18 09/19/18 22:59 06:59 14:59 Intake Total 200 1163 Output Total 0 350 Balance 200 813 Lab Results Last 24 Hours: Laboratory Results - last 24 hr 09/18/18 09/18/18 09/18/18 Range/Units 09:58 09:58 09:58 WBC 2.04 L (4.0-11.0) K/uL RBC 3.67 L (4.30-5.90) M/uL Hgb 12.8 (12.0-16.0) g/dL Hct 37.9 (36.0-46.0) % MCV 103.3 H (80.0-98.0) fL MCH 34.9 H (27.0-32.0) pg MCHC 33.8 (31.0-37.0) g/dL RDW Std Deviation 57.3 (28.0-62.0) fl RDW Coeff of Ashlee 15 (11.0-15.0) % Plt Count 204 (150-400) K/uL MPV 11.80 (7.40-12.00) fL Neut % (Auto) 67.2 (48.0-80.0) % Lymph % (Auto) 17.6 (16.0-40.0) % Mason % (Auto) 8.8 (0.0-15.0) % Eos % (Auto) 5.9 (0.0-7.0) % Baso % (Auto) 0.5 (0.0-1.5) % Neut # (Auto) 1.4 (1.4-5.7) K/uL Lymph # (Auto) 0.4 L (0.6-2.4) K/uL Mason # (Auto) 0.2 (0.0-0.8) K/uL Eos # (Auto) 0.1 (0.0-0.7) K/uL Baso # (Auto) 0.0 (0.0-0.1) K/uL Add Manual Diff Neutrophils % (Manual) (48.0-80.0) % Band Neutrophils % % Lymphocytes % (Manual) (16.0-40.0) % Monocytes % (Manual) (0.0-15.0) % Eosinophils % (Manual) (0.0-7.0) % Nucleated RBC % 0.0 /100WBC Absolute Seg Neuts (1.4-5.7) Band Neutrophils # Lymphocytes # (Manual) (0.6-2.4) Monocytes # (Manual) (0.0-0.8) Eosinophils # (Manual) (0.0-0.7) Nucleated RBCs # 0 K/uL INR 0.98 Lactate (0.20-2.00) mmol/L Sodium 127 L (136-145) mmol/L Potassium 3.6 (3.5-5.1) mmol/L Chloride 91 L (98-107) mmol/L Carbon Dioxide 23.3 (21.0-32.0) mmol/L BUN 57 H (7.0-18.0) mg/dL Creatinine 1.5 H (0.6-1.0) mg/dL Est Cr Clr Drug Dosing 26.42 mL/min Estimated GFR (MDRD) 34.0 ml/min Glucose 163 H (74-106) mg/dL POC Glucose (60-110) mg/dL Calcium 9.0 (8.5-10.1) mg/dL Total Bilirubin 0.5 (0.2-1.0) mg/dL AST 16 (15-37) IU/L ALT 12 L (14-63) IU/L Alkaline Phosphatase 122 H (46-116) U/L Troponin I < 0.050 (0.000-0.056) ng/mL B-Natriuretic Peptide (<100) PG/ML Total Protein 8.1 (6.4-8.2) g/dL Albumin 2.7 L (3.4-5.0) g/dL Globulin 5.4 H (2.6-4.0) g/dL Albumin/Globulin Ratio 0.5 L (0.9-1.6) 09/18/18 09/18/18 09/18/18 Range/Units 09:58 09:58 16:38 WBC (4.0-11.0) K/uL RBC (4.30-5.90) M/uL Hgb (12.0-16.0) g/dL Hct (36.0-46.0) % MCV (80.0-98.0) fL MCH (27.0-32.0) pg MCHC (31.0-37.0) g/dL RDW Std Deviation (28.0-62.0) fl RDW Coeff of Ashlee (11.0-15.0) % Plt Count (150-400) K/uL MPV (7.40-12.00) fL Neut % (Auto) (48.0-80.0) % Lymph % (Auto) (16.0-40.0) % Mason % (Auto) (0.0-15.0) % Eos % (Auto) (0.0-7.0) % Baso % (Auto) (0.0-1.5) % Neut # (Auto) (1.4-5.7) K/uL Lymph # (Auto) (0.6-2.4) K/uL Mason # (Auto) (0.0-0.8) K/uL Eos # (Auto) (0.0-0.7) K/uL Baso # (Auto) (0.0-0.1) K/uL Add Manual Diff Neutrophils % (Manual) (48.0-80.0) % Band Neutrophils % % Lymphocytes % (Manual) (16.0-40.0) % Monocytes % (Manual) (0.0-15.0) % Eosinophils % (Manual) (0.0-7.0) % Nucleated RBC % /100WBC Absolute Seg Neuts (1.4-5.7) Band Neutrophils # Lymphocytes # (Manual) (0.6-2.4) Monocytes # (Manual) (0.0-0.8) Eosinophils # (Manual) (0.0-0.7) Nucleated RBCs # K/uL INR Lactate 1.4 (0.20-2.00) mmol/L Sodium (136-145) mmol/L Potassium (3.5-5.1) mmol/L Chloride (98-107) mmol/L Carbon Dioxide (21.0-32.0) mmol/L BUN (7.0-18.0) mg/dL Creatinine (0.6-1.0) mg/dL Est Cr Clr Drug Dosing mL/min Estimated GFR (MDRD) ml/min Glucose (74-106) mg/dL POC Glucose 97 (60-110) mg/dL Calcium (8.5-10.1) mg/dL Total Bilirubin (0.2-1.0) mg/dL AST (15-37) IU/L ALT (14-63) IU/L Alkaline Phosphatase (46-116) U/L Troponin I (0.000-0.056) ng/mL B-Natriuretic Peptide 6 (<100) PG/ML Total Protein (6.4-8.2) g/dL Albumin (3.4-5.0) g/dL Globulin (2.6-4.0) g/dL Albumin/Globulin Ratio (0.9-1.6) 09/19/18 09/19/18 Range/Units 05:15 05:15 WBC 1.51 L (4.0-11.0) K/uL RBC 3.02 L (4.30-5.90) M/uL Hgb 10.7 L (12.0-16.0) g/dL Hct 31.4 L (36.0-46.0) % MCV 104.0 H (80.0-98.0) fL MCH 35.4 H (27.0-32.0) pg MCHC 34.1 (31.0-37.0) g/dL RDW Std Deviation 56.4 (28.0-62.0) fl RDW Coeff of Ashlee 15 (11.0-15.0) % Plt Count 141 L (150-400) K/uL MPV 12.70 H (7.40-12.00) fL Neut % (Auto) (48.0-80.0) % Lymph % (Auto) (16.0-40.0) % Mason % (Auto) (0.0-15.0) % Eos % (Auto) (0.0-7.0) % Baso % (Auto) (0.0-1.5) % Neut # (Auto) (1.4-5.7) K/uL Lymph # (Auto) (0.6-2.4) K/uL Mason # (Auto) (0.0-0.8) K/uL Eos # (Auto) (0.0-0.7) K/uL Baso # (Auto) (0.0-0.1) K/uL Add Manual Diff YES Neutrophils % (Manual) 20 L (48.0-80.0) % Band Neutrophils % 15 % Lymphocytes % (Manual) 45 H (16.0-40.0) % Monocytes % (Manual) 11 (0.0-15.0) % Eosinophils % (Manual) 9 H (0.0-7.0) % Nucleated RBC % 0.0 /100WBC Absolute Seg Neuts 0.3 L (1.4-5.7) Band Neutrophils # 0.2 Lymphocytes # (Manual) 0.7 (0.6-2.4) Monocytes # (Manual) 0.2 (0.0-0.8) Eosinophils # (Manual) 0.1 (0.0-0.7) Nucleated RBCs # 0 K/uL INR Lactate (0.20-2.00) mmol/L Sodium 130 L (136-145) mmol/L Potassium 3.7 (3.5-5.1) mmol/L Chloride 99 (98-107) mmol/L Carbon Dioxide 23.3 (21.0-32.0) mmol/L BUN 35 H (7.0-18.0) mg/dL Creatinine 0.8 (0.6-1.0) mg/dL Est Cr Clr Drug Dosing 49.53 mL/min Estimated GFR (MDRD) > 60.0 ml/min Glucose 139 H (74-106) mg/dL POC Glucose (60-110) mg/dL Calcium 8.1 L (8.5-10.1) mg/dL Total Bilirubin 0.3 (0.2-1.0) mg/dL AST 12 L (15-37) IU/L ALT 11 L (14-63) IU/L Alkaline Phosphatase 85 (46-116) U/L Troponin I (0.000-0.056) ng/mL B-Natriuretic Peptide (<100) PG/ML Total Protein 6.5 (6.4-8.2) g/dL Albumin 2.1 L (3.4-5.0) g/dL Globulin 4.4 H (2.6-4.0) g/dL Albumin/Globulin Ratio 0.5 L (0.9-1.6) Romero Results Last 24 Hours: Microbiology 09/18/18 11:15 Campylobacter Antigen Assay - Final Stool / Feces Positive Campylobacter Ag 09/18/18 11:15 Clostridium difficile Toxin A & B - Final Stool / Feces Negative for C.Diff Toxin/AG REFERENCE RANGE: NEGATIVE Med Orders - Current: Current Medications Acetaminophen (Tylenol) 650 mg PO Q4H PRN PRN Reason: Pain (Mild 1-3)/fever Azathioprine (Imuran) 100 mg PO DAILY [facility] Docusate Sodium (Colace) 100 mg PO BID PRN PRN Reason: Constipation Furosemide (Lasix) 20 mg PO DAILY [facility] Heparin Sodium (Porcine) (Heparin Sodium) 5,000 units SUBCUT Q8H [facility] Last Admin: 09/19/18 05:11 Dose: 5,000 units Hydrochlorothiazide (Hydrochlorothiazide) 25 mg PO DAILY [facility] Sodium Chloride (Normal Saline) 1,000 mls @ 75 mls/hr IV ASDIRECTED [facility] Last Admin: 09/19/18 06:42 Dose: 75 mls/hr Insulin Aspart (Novolog) 0 unit SUBCUT TIDAC [facility]; Protocol Last Admin: 09/18/18 17:30 Dose: Not Given Levothyroxine Sodium (Synthroid) 100 mcg PO ACBREAKFAST [facility] Last Admin: 09/19/18 06:40 Dose: 100 mcg Ondansetron HCl (Zofran Odt) 4 mg PO Q6H PRN PRN Reason: nausea, able to take PO Oxycodone HCl (Oxycodone) 5 mg PO Q4H PRN PRN Reason: Pain (moderate 4-6) Paroxetine HCl (Paxil) 20 mg PO DAILY [facility] Sodium Chloride (Saline Flush) 10 ml FLUSH ASDIRECTED PRN PRN Reason: Keep Vein Open Last Admin: 09/18/18 10:31 Dose: 10 ml Sodium Chloride (Saline Flush) 2.5 ml FLUSH ASDIRECTED PRN PRN Reason: Keep Vein Open Last Admin: 09/18/18 10:31 Dose: 2.5 ml Spironolactone (Aldactone) 25 mg PO BID [facility] Last Admin: 09/18/18 20:33 Dose: 25 mg Temazepam (Restoril) 15 mg PO BEDTIME PRN PRN Reason: Sleep Last Admin: 09/19/18 00:20 Dose: 15 mg Discontinued Medications Sodium Chloride (Normal Saline) 1,000 mls @ 999 mls/hr IV STAT ONE Stop: 09/18/18 10:59 Last Admin: 09/18/18 10:31 Dose: 999 mls/hr Levofloxacin/Dextrose 750 mg/ (Premix) 150 mls @ 100 mls/hr IV ONETIME ONE Stop: 09/18/18 13:02 Last Admin: 09/18/18 11:50 Dose: 100 mls/hr - Exam Quality Assessment: Supplemental Oxygen General: Alert, Oriented, Cooperative, Lethargic HEENT: Pupils Equal, Pupils Reactive, EOMI. No: Mucous Membr. Moist/[place] (Dry) Neck: Supple, Trachea Midline Lungs: Normal Respiratory Effort, Crackles, Rales Cardiovascular: Regular Rate, Regular Rhythm GI/Abdominal Exam: Normal Bowel Sounds, Soft, Non-Tender, No Distention Back Exam: Normal Inspection, Full Range of Motion Extremities: Normal Inspection, No Pedal Edema Skin: Warm, Dry, Intact Neurological: No New Focal Deficit Psy/Mental Status: Alert, Normal Affect, Normal Mood - Problem List & Annotations (1) Campylobacter enteritis SNOMED Code(s): 80981455 Code(s): A04.5 - CAMPYLOBACTER ENTERITIS Status: Acute Priority: High Current Visit: Yes (2) Weakness SNOMED Code(s): 83516836 Code(s): R53.1 - WEAKNESS Status: Acute Priority: High Current Visit: Yes (3) Dehydration SNOMED Code(s): 32540629 Code(s): E86.0 - DEHYDRATION Status: Acute Priority: High Current Visit : Yes Annotation/Comment:: Improved (4) Diabetes mellitus type 2, controlled SNOMED Code(s): 47698800, 765869514 Code(s): E11.9 - TYPE 2 DIABETES MELLITUS WITHOUT COMPLICATIONS Status: Chronic Priority: High Current Visit: Yes Qualifiers: Diabetes mellitus lobsterman insulin use: without lobsterman use Diabetes mellitus complication status: without complication Qualified Code(s): E11.9 - Type 2 diabetes mellitus without complications (5) Uterine cancer SNOMED Code(s): 062752077 Code(s): C55 - MALIGNANT NEOPLASM OF UTERUS, PART UNSPECIFIED Status: Acute Current Visit: Yes Qualifiers: Malignant neoplasm of uterus location: unspecified site of uterus Qualified Code(s): C55 - Malignant neoplasm of uterus, part unspecified - Problem List Review Problem List Initiated/Reviewed/Updated: Yes - My Orders Last 24 Hours: My Active Orders 09/18/18 12:20 Blood Glucose Check, Bedside [RC] WITHMEALSANDBED Up With Assistance [RC] ASDIRECTED Vital Signs [RC] Q4H Acetaminophen [Tylenol] 650 mg PO Q4H PRN Docusate Sodium [Colace] 100 mg PO BID PRN Ondansetron [Zofran ODT] 4 mg PO Q6H PRN Temazepam [Restoril] 15 mg PO BEDTIME PRN oxyCODONE 5 mg PO Q4H PRN Resuscitation Status Routine 09/18/18 12:30 Heparin Sodium 5,000 units SUBCUT Q8H 09/18/18 12:40 Diabetes Education [RC] Click to Edit Oxygen Therapy [RC] PRN VTE/DVT Education [RC] PER UNIT ROUTINE Glucose Management Sub Q Reflex [OM.PC] Click To Edit 09/18/18 13:02 Consult to Occupational Therapy [OT Evaluation and Treatment] [CONS] Routine PT Evaluation and Treatment [CONS] Routine 09/18/18 17:00 Insulin Aspart [NovoLOG] See Protocol SUBCUT TIDAC 09/18/18 17:15 Sodium Chloride 0.9% [Normal Saline] 1,000 ml IV ASDIRECTED 09/18/18 19:29 URINALYSIS W/MICROSCOPIC [UA W/MICROSCOPIC] [URIN] Routine 09/18/18 21:00 Spironolactone [Aldactone] 25 mg PO BID 09/18/18 Dinner Clear Liquid Diet [DIET] 09/19/18 07:30 Levothyroxine [Synthroid] 100 mcg PO ACBREAKFAST 09/19/18 09:00 Furosemide [Lasix] 20 mg PO DAILY PARoxetine [Paxil] 20 mg PO DAILY azaTHIOprine [Imuran] 100 mg PO DAILY hydroCHLOROthiazide 25 mg PO DAILY - Plan Plan:: The patient is a 73-year-old lady who had been admitted from the emergency department as an inpatient secondary to intensity of care required for her treatment. The patient has had positive testing for Campylobacter and she is currently on Levaquin and this will be continued for her. Patient also has a history of advanced metastatic uterine cancer. PTOT is also been ordered for the patient. Repeat laboratory studies of also been ordered. Patient is encouraged to ambulate. Patient is also at this time pancytopenic and her WBCs are at 1.5 thousand. The patient will be considered appropriate for neutropenic precautions if her white blood cell drops any further. This is likely secondary to her chemotherapy. The patient will also be kept on fluid support. The patient should be appropriate for discharge in 1-2 days depending upon further findings.
[2018-09-19] MEDS: Spironolactone 25 MG Tab PO SCH ×2 (09:20→20:30)
[2018-09-19] MEDS: PARoxetine 20 MG Tab PO SCH (09:20)
[2018-09-19] MEDS: Furosemide 20 MG Tab PO SCH (09:21)
[2018-09-19] MEDS: Hydrochlorothiazide 25 MG Tab PO SCH (09:21)
[2018-09-19] MEDS: Insulin Aspart 100 Units/ML 3 ML Pen SUBCUT SCH ×3 (09:23→17:23)
[2018-09-19] MEDS: Acetaminophen 325 MG Tab PO PRN (14:57)
[2018-09-20 06:23] LABS: CHLORIDE,CL 102 mmol/L (98-107); SODIUM,NA 133 mmol/L (136-145)
[2018-09-20] MEDS: Heparin Sodium 5,000 Units/ML Vial SUBCUT SCH ×3 (06:34→20:20)
[2018-09-20] MEDS: Levothyroxine 100 MCG Tab PO SCH (06:43)
--- NOTE | 2018-09-20 07:14 | PCM.PN ---
- General Info Date of Service: 09/20/18 Admission Dx/Problem (Free Text): Admission Diagnosis/Problem Admission Diagnosis/Problem Weakness, dehydration, advanced uterine cancer , nausea vomiting, chemotherapy Subjective Update: The patient is a 73-year-old lady who initially had been admitted secondary to weakness, nausea and vomiting with diarrhea. She was positive for Campylobacter and has been on antibiotics. The patient today says that she is feeling somewhat better but very weak. She still says that she is having diarrhea. The patient has been tolerating her diet of clear liquids. The patient does have advanced uterine cancer. Functional Status: Reports: Pain Controlled - Review of Systems General: Reports: Weakness, Fatigue HEENT: Reports: No Symptoms Pulmonary: Reports: No Symptoms Cardiovascular: Reports: No Symptoms Gastrointestinal: Reports: No Symptoms Genitourinary: Reports: No Symptoms Musculoskeletal: Reports: No Symptoms Skin: Reports: No Symptoms Neurological: Reports: No Symptoms Psychiatric: Reports: No Symptoms - Patient Data Vitals - Most Recent: Last Vital Signs Temp 35.9 C 09/20/18 04:00 Pulse 93 09/20/18 04:00 Resp 18 09/20/18 04:00 BP 136/63 09/20/18 04:00 Pulse Ox 93 L 09/20/18 04:00 Weight - Most Recent: 76.657 kg I&O - Last 24 Hours: Intake & Output 09/19/18 09/20/18 09/20/18 22:59 06:59 14:59 Intake Total 1870 1188 Output Total 900 800 Balance 970 388 Lab Results Last 24 Hours: Laboratory Results - last 24 hr 09/19/18 09/19/18 09/19/18 Range/Units 05:15 11:40 11:50 WBC 1.51 L (4.0-11.0) K/uL RBC 3.02 L (4.30-5.90) M/uL Hgb 10.7 L (12.0-16.0) g/dL Hct 31.4 L (36.0-46.0) % MCV 104.0 H (80.0-98.0) fL MCH 35.4 H (27.0-32.0) pg MCHC 34.1 (31.0-37.0) g/dL RDW Std Deviation 56.4 (28.0-62.0) fl RDW Coeff of Ashlee 15 (11.0-15.0) % Plt Count 141 L (150-400) K/uL MPV 12.70 H (7.40-12.00) fL Add Manual Diff YES Neutrophils % (Manual) 20 L (48.0-80.0) % Band Neutrophils % 15 % Lymphocytes % (Manual) 45 H (16.0-40.0) % Monocytes % (Manual) 11 (0.0-15.0) % Eosinophils % (Manual) 9 H (0.0-7.0) % Nucleated RBC % 0.0 /100WBC Absolute Seg Neuts 0.3 L (1.4-5.7) Band Neutrophils # 0.2 Lymphocytes # (Manual) 0.7 (0.6-2.4) Monocytes # (Manual) 0.2 (0.0-0.8) Eosinophils # (Manual) 0.1 (0.0-0.7) Nucleated RBCs # 0 K/uL Sodium (136-145) mmol/L Potassium (3.5-5.1) mmol/L Chloride (98-107) mmol/L Carbon Dioxide (21.0-32.0) mmol/L BUN (7.0-18.0) mg/dL Creatinine (0.6-1.0) mg/dL Est Cr Clr Drug Dosing mL/min Estimated GFR (MDRD) ml/min Glucose (74-106) mg/dL POC Glucose 141 H (60-110) mg/dL Calcium (8.5-10.1) mg/dL Urine Color YELLOW Urine Appearance CLEAR Urine pH 6.0 (5.0-8.0) Ur Specific [place] 1.015 (1.001-1.035) Urine Protein NEGATIVE (NEGATIVE) mg/dL Urine Glucose (UA) NEGATIVE (NEGATIVE) mg/dL Urine Ketones TRACE H (NEGATIVE) mg/dL Urine Occult Blood TRACE-INTACT H (NEGATIVE) Urine Nitrite NEGATIVE (NEGATIVE) Urine Bilirubin NEGATIVE (NEGATIVE) Urine Urobilinogen 0.2 (<2.0) EU/dL Ur Leukocyte Esterase NEGATIVE (NEGATIVE) Urine RBC 0-2 (0-2/HPF) Urine WBC 0-1 (0-5/HPF) Ur Epithelial Cells MODERATE (NONE-FEW) Urine Bacteria RARE (NEGATIVE) 06/20/19 06/21/19 06/21/19 Range/Units 17:10 05:05 05:05 WBC 1.37 L (4.0-11.0) K/uL RBC 3.13 L (4.30-5.90) M/uL Hgb 10.8 L (12.0-16.0) g/dL Hct 32.9 L (36.0-46.0) % MCV 105.1 H (80.0-98.0) fL MCH 34.5 H (27.0-32.0) pg MCHC 32.8 (31.0-37.0) g/dL RDW Std Deviation 57.2 (28.0-62.0) fl RDW Coeff of Ashlee 15 (11.0-15.0) % Plt Count 173 (150-400) K/uL MPV 12.40 H (7.40-12.00) fL Add Manual Diff YES Neutrophils % (Manual) 20 L (48.0-80.0) % Band Neutrophils % 3 % Lymphocytes % (Manual) 45 H (16.0-40.0) % Monocytes % (Manual) 25 H (0.0-15.0) % Eosinophils % (Manual) 8 H (0.0-7.0) % Nucleated RBC % 0.0 /100WBC Absolute Seg Neuts 0.3 L (1.4-5.7) Band Neutrophils # 0 Lymphocytes # (Manual) 0.6 (0.6-2.4) Monocytes # (Manual) 0.3 (0.0-0.8) Eosinophils # (Manual) 0.1 (0.0-0.7) Nucleated RBCs # 0 K/uL Sodium 133 L (136-145) mmol/L Potassium 3.3 L (3.5-5.1) mmol/L Chloride 102 (98-107) mmol/L Carbon Dioxide 22.1 (21.0-32.0) mmol/L BUN 16 (7.0-18.0) mg/dL Creatinine 0.7 (0.6-1.0) mg/dL Est Cr Clr Drug Dosing 56.61 mL/min Estimated GFR (MDRD) > 60.0 ml/min Glucose 150 H (74-106) mg/dL POC Glucose 138 H (60-110) mg/dL Calcium 8.0 L (8.5-10.1) mg/dL Urine Color Urine Appearance Urine pH (5.0-8.0) Ur Specific [place] (1.001-1.035) Urine Protein (NEGATIVE) mg/dL Urine Glucose (UA) (NEGATIVE) mg/dL Urine Ketones (NEGATIVE) mg/dL Urine Occult Blood (NEGATIVE) Urine Nitrite (NEGATIVE) Urine Bilirubin (NEGATIVE) Urine Urobilinogen (<2.0) EU/dL Ur Leukocyte Esterase (NEGATIVE) Urine RBC (0-2/HPF) Urine WBC (0-5/HPF) Ur Epithelial Cells (NONE-FEW) Urine Bacteria (NEGATIVE) 09/20/18 Range/Units 06:55 WBC (4.0-11.0) K/uL RBC (4.30-5.90) M/uL Hgb (12.0-16.0) g/dL Hct (36.0-46.0) % MCV (80.0-98.0) fL MCH (27.0-32.0) pg MCHC (31.0-37.0) g/dL RDW Std Deviation (28.0-62.0) fl RDW Coeff of Ashlee (11.0-15.0) % Plt Count (150-400) K/uL MPV (7.40-12.00) fL Add Manual Diff Neutrophils % (Manual) (48.0-80.0) % Band Neutrophils % % Lymphocytes % (Manual) (16.0-40.0) % Monocytes % (Manual) (0.0-15.0) % Eosinophils % (Manual) (0.0-7.0) % Nucleated RBC % /100WBC Absolute Seg Neuts (1.4-5.7) Band Neutrophils # Lymphocytes # (Manual) (0.6-2.4) Monocytes # (Manual) (0.0-0.8) Eosinophils # (Manual) (0.0-0.7) Nucleated RBCs # K/uL Sodium (136-145) mmol/L Potassium (3.5-5.1) mmol/L Chloride (98-107) mmol/L Carbon Dioxide (21.0-32.0) mmol/L BUN (7.0-18.0) mg/dL Creatinine (0.6-1.0) mg/dL Est Cr Clr Drug Dosing mL/min Estimated GFR (MDRD) ml/min Glucose (74-106) mg/dL POC Glucose 123 H (60-110) mg/dL Calcium (8.5-10.1) mg/dL Urine Color Urine Appearance Urine pH (5.0-8.0) Ur Specific [place] (1.001-1.035) Urine Protein (NEGATIVE) mg/dL Urine Glucose (UA) (NEGATIVE) mg/dL Urine Ketones (NEGATIVE) mg/dL Urine Occult Blood (NEGATIVE) Urine Nitrite (NEGATIVE) Urine Bilirubin (NEGATIVE) Urine Urobilinogen (<2.0) EU/dL Ur Leukocyte Esterase (NEGATIVE) Urine RBC (0-2/HPF) Urine WBC (0-5/HPF) Ur Epithelial Cells (NONE-FEW) Urine Bacteria (NEGATIVE) Romero Results Last 24 Hours: Microbiology 09/18/18 10:26 Aerobic Blood Culture - Preliminary Blood - Venous NO GROWTH AFTER 1 DAY Anaerobic Blood Culture - Preliminary NO GROWTH AFTER 1 DAY 09/18/18 10:17 Aerobic Blood Culture - Preliminary Blood - Venous - Lab Draw NO GROWTH AFTER 1 DAY Anaerobic Blood Culture - Preliminary NO GROWTH AFTER 1 DAY 09/18/18 11:15 Campylobacter Antigen Assay - Final Stool / Feces Positive Campylobacter Ag Shiga Toxin I - Final NEGATIVE FOR SHIGA TOXIN 1 REFERENCE RANGE: NEGATIVE Shiga Toxin II - Final NEGATIVE FOR SHIGA TOXIN 2 REFERENCE RANGE: NEGATIVE Med Orders - Current: Current Medications Acetaminophen (Tylenol) 650 mg PO Q4H PRN PRN Reason: Pain (Mild 1-3)/fever Last Admin: 09/19/18 14:57 Dose: 650 mg Azathioprine (Imuran) 100 mg PO DAILY [facility] Last Admin: 09/19/18 09:22 Dose: 100 mg Docusate Sodium (Colace) 100 mg PO BID PRN PRN Reason: Constipation Furosemide (Lasix) 20 mg PO DAILY [facility] Last Admin: 09/19/18 09:21 Dose: 20 mg Heparin Sodium (Porcine) (Heparin Sodium) 5,000 units SUBCUT Q8H [facility] Last Admin: 09/20/18 06:34 Dose: Not Given Hydrochlorothiazide (Hydrochlorothiazide) 25 mg PO DAILY [facility] Last Admin: 09/19/18 09:21 Dose: 25 mg Sodium Chloride (Normal Saline) 1,000 mls @ 75 mls/hr IV ASDIRECTED [facility] Last Admin: 09/19/18 19:42 Dose: 75 mls/hr Insulin Aspart (Novolog) 0 unit SUBCUT TIDAC [facility]; Protocol Last Admin: 09/19/18 17:23 Dose: Not Given Levothyroxine Sodium (Synthroid) 100 mcg PO ACBREAKFAST [facility] Last Admin: 09/20/18 06:43 Dose: 100 mcg Ondansetron HCl (Zofran Odt) 4 mg PO Q6H PRN PRN Reason: nausea, able to take PO Oxycodone HCl (Oxycodone) 5 mg PO Q4H PRN PRN Reason: Pain (moderate 4-6) Paroxetine HCl (Paxil) 20 mg PO DAILY [facility] Last Admin: 09/19/18 09:20 Dose: 20 mg Sodium Chloride (Saline Flush) 10 ml FLUSH ASDIRECTED PRN PRN Reason: Keep Vein Open Last Admin: 09/18/18 10:31 Dose: 10 ml Sodium Chloride (Saline Flush) 2.5 ml FLUSH ASDIRECTED PRN PRN Reason: Keep Vein Open Last Admin: 09/18/18 10:31 Dose: 2.5 ml Spironolactone (Aldactone) 25 mg PO BID [facility] Last Admin: 09/19/18 20:30 Dose: 25 mg Temazepam (Restoril) 15 mg PO BEDTIME PRN PRN Reason: Sleep Last Admin: 09/19/18 20:42 Dose: 15 mg Discontinued Medications Sodium Chloride (Normal Saline) 1,000 mls @ 999 mls/hr IV STAT ONE Stop: 09/18/18 10:59 Last Admin: 09/18/18 10:31 Dose: 999 mls/hr Levofloxacin/Dextrose 750 mg/ (Premix) 150 mls @ 100 mls/hr IV ONETIME ONE Stop: 09/18/18 13:02 Last Admin: 09/18/18 11:50 Dose: 100 mls/hr - Exam Quality Assessment: Supplemental Oxygen General: Alert, Oriented, Cooperative, No Acute Distress HEENT: Pupils Equal, Pupils Reactive, EOMI. No: Mucous Membr. Moist/[place] (Dry) Neck: Supple, Trachea Midline Lungs: Clear to Auscultation, Normal Respiratory Effort Cardiovascular: Regular Rate, Regular Rhythm GI/Abdominal Exam: Normal Bowel Sounds, Soft, Non-Tender, No Distention. No: Guarding, Rigid, Rebound Back Exam: Normal Inspection, Full Range of Motion Extremities: Normal Inspection, No Pedal Edema Skin: Warm, Dry, Intact Neurological: No New Focal Deficit Psy/Mental Status: Alert, Normal Affect, Normal Mood - Problem List & Annotations (1) Campylobacter enteritis SNOMED Code(s): 38139223 Code(s): A04.5 - CAMPYLOBACTER ENTERITIS Status: Acute Priority: High Current Visit: Yes (2) Weakness SNOMED Code(s): 03144087 Code(s): R53.1 - WEAKNESS Status: Acute Priority: High Current Visit: Yes (3) Dehydration SNOMED Code(s): 17361170 Code(s): E86.0 - DEHYDRATION Status: Acute Priority: High Current Visit : Yes Annotation/Comment:: Improved (4) Diabetes mellitus type 2, controlled SNOMED Code(s): 29885368, 595004041 Code(s): E11.9 - TYPE 2 DIABETES MELLITUS WITHOUT COMPLICATIONS Status: Chronic Priority: High Current Visit: Yes Qualifiers: Diabetes mellitus custodial insulin use: without custodial use Diabetes mellitus complication status: without complication Qualified Code(s): E11.9 - Type 2 diabetes mellitus without complications (5) Uterine cancer SNOMED Code(s): 488407978 Code(s): C55 - MALIGNANT NEOPLASM OF UTERUS, PART UNSPECIFIED Status: Acute Current Visit: Yes Qualifiers: Malignant neoplasm of uterus location: unspecified site of uterus Qualified Code(s): C55 - Malignant neoplasm of uterus, part unspecified - Problem List Review Problem List Initiated/Reviewed/Updated: Yes - My Orders Last 24 Hours: My Active Orders 09/19/18 07:30 Levothyroxine [Synthroid] 100 mcg PO ACBREAKFAST 09/19/18 09:00 Furosemide [Lasix] 20 mg PO DAILY PARoxetine [Paxil] 20 mg PO DAILY azaTHIOprine [Imuran] 100 mg PO DAILY hydroCHLOROthiazide 25 mg PO DAILY - Plan Plan:: The patient is a 73-year-old lady who feels somewhat better today. The patient' s absolute neutrophil count today is 315 and as a result of this I placed the patient on neutropenic precautions. She had been on clear liquid diet and has been tolerating this and advance the patient's diet. Repeat laboratory testings have been ordered for the patient. The patient does have Campylobacter enteritis and the patient is currently on Levaquin 500 mg IV daily. The patient' s platelets had improved to normal. She has been encouraged to ambulate. The patient will be kept on neutropenic diet as tolerated. The patient also had been thinking about discontinuing chemotherapy and I had a long discussion with the patient with regards to hospice and hospice care. The patient has not made it decision as yet. We'll continue with full code resuscitation status for now.
[2018-09-20] MEDS: Insulin Aspart 100 Units/ML 3 ML Pen SUBCUT SCH ×3 (07:38→18:04)
[2018-09-20] MEDS: Sodium Chloride 0.9% 1,000 ML IV SCH ×2 (08:21→22:21)
[2018-09-20] MEDS: Furosemide 20 MG Tab PO SCH (09:03)
[2018-09-20] MEDS: Hydrochlorothiazide 25 MG Tab PO SCH (09:04)
[2018-09-20] MEDS: Spironolactone 25 MG Tab PO SCH ×2 (09:04→20:20)
[2018-09-20] MEDS: PARoxetine 20 MG Tab PO SCH (09:04)
[2018-09-20] MEDS: Levofloxacin/Dextrose 5%-Water 500 MG in Premix Bag 1 BAG IV SCH (09:19)
[2018-09-20] MEDS: Acetaminophen 325 MG Tab PO PRN (18:16)
[2018-09-20] MEDS: Temazepam 15 MG Cap PO PRN (20:20)
[2018-09-21] MEDS: Heparin Sodium 5,000 Units/ML Vial SUBCUT SCH (03:41)
[2018-09-21] MEDS: Levothyroxine 100 MCG Tab PO SCH (06:40)
[2018-09-21 06:44] LABS: CHLORIDE,CL 103 mmol/L (98-107); SODIUM,NA 135 mmol/L (136-145)
[2018-09-21 07:54] VITALS: BP 159/79
[2018-09-21] MEDS: Levofloxacin/Dextrose 5%-Water 500 MG in Premix Bag 1 BAG IV SCH (07:54)
[2018-09-21] MEDS: Insulin Aspart 100 Units/ML 3 ML Pen SUBCUT SCH (07:59)
[2018-09-21] MEDS: Furosemide 20 MG Tab PO SCH (08:01)
[2018-09-21] MEDS: PARoxetine 20 MG Tab PO SCH (08:02)
[2018-09-21] MEDS: Spironolactone 25 MG Tab PO SCH (08:02)
[2018-09-21] MEDS: Hydrochlorothiazide 25 MG Tab PO SCH (08:02)
--- NOTE | 2018-09-21 09:00 | PCM.DCSUM1 ---
Discharge Summary - Hospital Course Diagnosis: Stroke: No - Discharge Data Discharge Date: 09/21/18 Discharge Disposition: DC/Tfer to Hospice - Home 50 Condition: Fair - Discharge Diagnosis/Problem(s) (1) Campylobacter enteritis SNOMED Code(s): 62961994 ICD Code: A04.5 - CAMPYLOBACTER ENTERITIS Status: Resolved Priority: High Current Visit: Yes (2) Weakness SNOMED Code(s): 64470829 ICD Code: R53.1 - WEAKNESS Status: Acute Priority: High Current Visit: Yes (3) Dehydration SNOMED Code(s): 23560545 ICD Code: E86.0 - DEHYDRATION Status: Acute Priority: High Current Visit: Yes Problem Details: Improved (4) Diabetes mellitus type 2, controlled SNOMED Code(s): 40623199, 721498933 ICD Code: E11.9 - TYPE 2 DIABETES MELLITUS WITHOUT COMPLICATIONS Status: Chronic Priority: High Current Visit: Yes Qualifiers: Diabetes mellitus intermediate frame tender insulin use: without snf use Diabetes mellitus complication status: without complication Qualified Code(s): E11.9 - Type 2 diabetes mellitus without complications (5) Uterine cancer SNOMED Code(s): 778635220 ICD Code: C55 - MALIGNANT NEOPLASM OF UTERUS, PART UNSPECIFIED Status: Acute Current Visit: Yes Qualifiers: Malignant neoplasm of uterus location: unspecified site of uterus Qualified Code(s): C55 - Malignant neoplasm of uterus, part unspecified - Patient Summary/Data Consults: Consultations 09/18/18 13:02 Consult to Occupational Therapy [OT Evaluation and Treatment] [CONS] Routine PT Evaluation and Treatment [CONS] Routine 09/20/18 09:42 Consult to Hospice [CONS] Routine Hospital Course: The patient is a 72-year-old lady who had presented to the emergency department out of concern for weakness, nausea, vomiting and diarrhea. The patient had 5 days prior to admission chemotherapy for advanced uterine cancer. The patient reports that she had not been able to drink or eat very well over the past several days. The patient was admitted and aggressively treated with antibiotics due to her chemotherapy in immune compromised state. The patient was noted to have initially a white blood cell count of 2000 and this had dropped to a low of 1.37 with an absolute neutrophil count of 315. The patient had been kept on Levaquin 500 mg IV on a daily basis to help with previously noted Campylobacter enteritis/colitis as well as prevention of other opportunistic infections. By day of discharge the patient's symptoms had resolved and she felt much better. The patient had expressed a desire to stop chemotherapy for her uterine cancer. I had a long discussion with the patient and her with regards to consideration for hospice care. Hospice consult was placed. The patient had elected with her to institute hospice care. The patient's resuscitation code had been changed to a DO NOT INTUBATE/DO NOT RESUSCITATE and hospice papers were signed. Due to the patient's Campylobacter enteritis/colitis she will be kept on Levaquin 500 mg by mouth daily for the next 5 days. The patient also has been using oxygen prior to admission primarily at night and this will be continued for her. She is to use oxygen via nasal cannula at 2 L/m. The patient has been recommended to continue with her diet as tolerated. She is also to have activity as tolerated. The patient should follow up with hospice care physician as well as her primary care physician. She has been hemodynamically stable. The patient is discharged from acute hospitalization with recommendations listed above. She has been discharged to hospice home care. - Patient Instructions Diet: Usual Diet as Tolerated Activity: As Tolerated Notify Provider of: Fever, Increased Pain - Discharge Plan *PRESCRIPTION DRUG MONITORING PROGRAM REVIEWED*: No *COPY OF PRESCRIPTION DRUG MONITORING REPORT IN PATIENT GEOVANNY: No Prescriptions/Med Rec: levoFLOXacin [Levaquin] 500 mg PO DAILY #5 tab Home Medications: Home Meds Furosemide [Lasix] 20 mg PO DAILY 04/29/16 [History] Hydrochlorothiazide 25 mg PO DAILY 04/29/16 [History] Insulin Aspart [NovoLOG] 0 - 5 unit SUBCUT BIDAC 04/29/16 [History] Insulin Detemir [Levemir] 55 unit SQ DAILY 04/29/16 [History] Levothyroxine [Synthroid] 100 mcg PO DAILY 04/29/16 [History] PARoxetine [Paxil] 20 mg PO DAILY 04/29/16 [History] SitaGLIPtin [Januvia] 100 mg PO DAILY 04/29/16 [History] Spironolactone [Aldactone] 25 mg PO BID 04/29/16 [History] azaTHIOprine [Azathioprine] 100 mg PO DAILY 04/29/16 [History] Acetaminophen [Tylenol Extra Strength] 500 mg PO TID PRN 09/18/18 [History] Acetaminophen with Codeine [Tylenol with Codeine #3 Tablet] 1 - 2 tab PO Q4H PRN 09/18/18 [History] Acetaminophen/Diphenhydramine [Tylenol Pm Ex-Strength Caplet] 1 - 2 tab PO BEDTIME PRN 09/18/18 [History] Milk Thistle 1 cap PO DAILY 09/18/18 [History] Ondansetron [Zofran ODT] 4 mg PO Q8H PRN 09/18/18 [History] levoFLOXacin [Levaquin] 500 mg PO DAILY #5 tab 09/21/18 [Rx] Patient Handouts: Anemia, Weakness, [id number], Levofloxacin tablets, Neutropenia, Dehydration, Adult - Discharge Summary/Plan Comment DC Time >30 min.: Yes - General Info Date of Service: 09/21/18 Admission Dx/Problem (Free Text: Admission Diagnosis/Problem Admission Diagnosis/Problem Weakness, dehydration, advanced uterine cancer , nausea vomiting, chemotherapy Subjective Update: Patient is doing better today. She has denied any pain. No nausea or vomiting. Patient feels like she can go home with hospice care. Functional Status: Reports: Pain Controlled - Review of Systems General: Reports: No Symptoms HEENT: Reports: No Symptoms Pulmonary: Reports: No Symptoms Cardiovascular: Reports: No Symptoms Gastrointestinal: Reports: No Symptoms Genitourinary: Reports: No Symptoms Musculoskeletal: Reports: No Symptoms Skin: Reports: No Symptoms Neurological: Reports: No Symptoms Psychiatric: Reports: No Symptoms - Patient Data Vitals - Most Recent: Last Vital Signs Temp 36.6 C 09/21/18 07:53 Pulse 82 09/21/18 07:53 Resp 18 09/21/18 07:53 BP 159/79 H 09/21/18 07:53 Pulse Ox 93 L 09/21/18 07:53 Weight - Most Recent: 76.657 kg I&O - Last 24 hours: Intake & Output 09/20/18 09/21/18 09/21/18 22:59 06:59 14:59 Intake Total 600 1096 Output Total 1200 550 Balance -600 546 Lab Results - Last 24 hrs: Laboratory Results - last 24 hr 09/20/18 09/20/18 09/20/18 Range/Units 11:40 17:17 20:19 WBC (4.0-11.0) K/uL RBC (4.30-5.90) M/uL Hgb (12.0-16.0) g/dL Hct (36.0-46.0) % MCV (80.0-98.0) fL MCH (27.0-32.0) pg MCHC (31.0-37.0) g/dL RDW Std Deviation (28.0-62.0) fl RDW Coeff of Ashlee (11.0-15.0) % Plt Count (150-400) K/uL MPV (7.40-12.00) fL Add Manual Diff Neutrophils % (Manual) (48.0-80.0) % Band Neutrophils % % Lymphocytes % (Manual) (16.0-40.0) % Monocytes % (Manual) (0.0-15.0) % Eosinophils % (Manual) (0.0-7.0) % Nucleated RBC % /100WBC Absolute Seg Neuts (1.4-5.7) Band Neutrophils # Lymphocytes # (Manual) (0.6-2.4) Monocytes # (Manual) (0.0-0.8) Eosinophils # (Manual) (0.0-0.7) Nucleated RBCs # K/uL Sodium (136-145) mmol/L Potassium (3.5-5.1) mmol/L Chloride (98-107) mmol/L Carbon Dioxide (21.0-32.0) mmol/L BUN (7.0-18.0) mg/dL Creatinine (0.6-1.0) mg/dL Est Cr Clr Drug Dosing mL/min Estimated GFR (MDRD) ml/min Glucose (74-106) mg/dL POC Glucose 122 H 128 H 173 H (60-110) mg/dL Calcium (8.5-10.1) mg/dL Total Bilirubin (0.2-1.0) mg/dL AST (15-37) IU/L ALT (14-63) IU/L Alkaline Phosphatase (46-116) U/L Total Protein (6.4-8.2) g/dL Albumin (3.4-5.0) g/dL Globulin (2.6-4.0) g/dL Albumin/Globulin Ratio (0.9-1.6) 06/22/19 06/22/19 06/22/19 Range/Units 05:52 05:52 06:23 WBC 1.68 L (4.0-11.0) K/uL RBC 2.98 L (4.30-5.90) M/uL Hgb 10.6 L (12.0-16.0) g/dL Hct 31.4 L (36.0-46.0) % MCV 105.4 H (80.0-98.0) fL MCH 35.6 H (27.0-32.0) pg MCHC 33.8 (31.0-37.0) g/dL RDW Std Deviation 56.6 (28.0-62.0) fl RDW Coeff of Ashlee 15 (11.0-15.0) % Plt Count 187 (150-400) K/uL MPV 11.20 (7.40-12.00) fL Add Manual Diff YES Neutrophils % (Manual) 25 L (48.0-80.0) % Band Neutrophils % 5 % Lymphocytes % (Manual) 47 H (16.0-40.0) % Monocytes % (Manual) 17 H (0.0-15.0) % Eosinophils % (Manual) 6 (0.0-7.0) % Nucleated RBC % 0.0 /100WBC Absolute Seg Neuts 0.4 L (1.4-5.7) Band Neutrophils # 0.1 Lymphocytes # (Manual) 0.8 (0.6-2.4) Monocytes # (Manual) 0.3 (0.0-0.8) Eosinophils # (Manual) 0.1 (0.0-0.7) Nucleated RBCs # 0 K/uL Sodium 135 L (136-145) mmol/L Potassium 3.5 (3.5-5.1) mmol/L Chloride 103 (98-107) mmol/L Carbon Dioxide 26.9 (21.0-32.0) mmol/L BUN 11 (7.0-18.0) mg/dL Creatinine 0.6 (0.6-1.0) mg/dL Est Cr Clr Drug Dosing 66.05 mL/min Estimated GFR (MDRD) > 60.0 ml/min Glucose 140 H (74-106) mg/dL POC Glucose 155 H (60-110) mg/dL Calcium 8.1 L (8.5-10.1) mg/dL Total Bilirubin 0.2 (0.2-1.0) mg/dL AST 16 (15-37) IU/L ALT 11 L (14-63) IU/L Alkaline Phosphatase 72 (46-116) U/L Total Protein 6.2 L (6.4-8.2) g/dL Albumin 2.2 L (3.4-5.0) g/dL Globulin 4.0 (2.6-4.0) g/dL Albumin/Globulin Ratio 0.6 L (0.9-1.6) RENÉ Results - Last 24 hrs: Microbiology 09/18/18 11:15 Stool Culture - Final Stool / Feces NO SALMONELLA, SHIGELLA,OR E.COLI O157 ISOLATED Campylobacter Antigen Assay - Final Positive Campylobacter Ag Shiga Toxin I - Final NEGATIVE FOR SHIGA TOXIN 1 REFERENCE RANGE: NEGATIVE Shiga Toxin II - Final NEGATIVE FOR SHIGA TOXIN 2 REFERENCE RANGE: NEGATIVE 09/18/18 10:26 Aerobic Blood Culture - Preliminary Blood - Venous NO GROWTH AFTER 2 DAYS Anaerobic Blood Culture - Preliminary NO GROWTH AFTER 2 DAYS 09/18/18 10:17 Aerobic Blood Culture - Preliminary Blood - Venous - Lab Draw NO GROWTH AFTER 2 DAYS Anaerobic Blood Culture - Preliminary NO GROWTH AFTER 2 DAYS Med Orders - Current: Current Medications Acetaminophen (Tylenol) 650 mg PO Q4H PRN PRN Reason: Pain (Mild 1-3)/fever Last Admin: 09/20/18 18:16 Dose: 650 mg Azathioprine (Imuran) 100 mg PO DAILY [facility] Last Admin: 09/21/18 08:02 Dose: 100 mg Docusate Sodium (Colace) 100 mg PO BID PRN PRN Reason: Constipation Furosemide (Lasix) 20 mg PO DAILY [facility] Last Admin: 09/21/18 08:01 Dose: 20 mg Heparin Sodium (Porcine) (Heparin Sodium) 5,000 units SUBCUT Q8H [facility] Last Admin: 09/21/18 03:41 Dose: 5,000 units Hydrochlorothiazide (Hydrochlorothiazide) 25 mg PO DAILY [facility] Last Admin: 09/21/18 08:02 Dose: 25 mg Sodium Chloride (Normal Saline) 1,000 mls @ 75 mls/hr IV ASDIRECTED [facility] Last Admin: 09/20/18 22:21 Dose: 75 mls/hr Levofloxacin/Dextrose 500 mg/ (Premix) 100 mls @ 100 mls/hr IV Q24H [facility] Last Admin: 09/21/18 07:54 Dose: 100 mls/hr Insulin Aspart (Novolog) 0 unit SUBCUT TIDAC [facility]; Protocol Last Admin: 09/21/18 07:59 Dose: 1 unit Levothyroxine Sodium (Synthroid) 100 mcg PO ACBREAKFAST [facility] Last Admin: 09/21/18 06:40 Dose: 100 mcg Ondansetron HCl (Zofran Odt) 4 mg PO Q6H PRN PRN Reason: nausea, able to take PO Oxycodone HCl (Oxycodone) 5 mg PO Q4H PRN PRN Reason: Pain (moderate 4-6) Paroxetine HCl (Paxil) 20 mg PO DAILY [facility] Last Admin: 09/21/18 08:02 Dose: 20 mg Sodium Chloride (Saline Flush) 10 ml FLUSH ASDIRECTED PRN PRN Reason: Keep Vein Open Last Admin: 09/18/18 10:31 Dose: 10 ml Sodium Chloride (Saline Flush) 2.5 ml FLUSH ASDIRECTED PRN PRN Reason: Keep Vein Open Last Admin: 09/18/18 10:31 Dose: 2.5 ml Spironolactone (Aldactone) 25 mg PO BID [facility] Last Admin: 09/21/18 08:02 Dose: 25 mg Temazepam (Restoril) 15 mg PO BEDTIME PRN PRN Reason: Sleep Last Admin: 09/20/18 20:20 Dose: 15 mg Discontinued Medications Sodium Chloride (Normal Saline) 1,000 mls @ 999 mls/hr IV STAT ONE Stop: 09/18/18 10:59 Last Admin: 09/18/18 10:31 Dose: 999 mls/hr Levofloxacin/Dextrose 750 mg/ (Premix) 150 mls @ 100 mls/hr IV ONETIME ONE Stop: 09/18/18 13:02 Last Admin: 09/18/18 11:50 Dose: 100 mls/hr - Exam Quality Assessment: Reports: Supplemental Oxygen General: Reports: Alert, Oriented, Cooperative, No Acute Distress HEENT: Reports: Pupils Equal, Pupils Reactive, EOMI, Mucous Membr. Moist/[place] Neck: Reports: Supple, Trachea Midline Lungs: Reports: Clear to Auscultation, Normal Respiratory Effort Cardiovascular: Reports: Regular Rate, Regular Rhythm GI/Abdominal Exam: Normal Bowel Sounds, Soft, Non-Tender, No Distention. No: Guarding, Rigid, Rebound Back Exam: Reports: Normal Inspection, Full Range of Motion Extremities: Normal Inspection, No Pedal Edema Skin: Reports: Warm, Dry, Intact Neurological: Reports: No New Focal Deficit Psy/Mental Status: Reports: Alert, Normal Affect, Normal Mood
[2018-09-21] MEDS ORDERED: Heparin Sodium 5,000 Units/ML Vial IVPUSH ONE (10:28)
== END 2018-09-21 11:10 | disposition hospice, home (50) | DRG 373 ==
LOC: MW.ED 09:43 → MW.MS 12:03
PROVIDERS: ADMIT Internal Medicine; ATTEND Internal Medicine
DX: A04.5 Campylobacter enteritis (principal); K52.9 Noninfective gastroenteritis and colitis, unspecified; E86.0 Dehydration; M19.91 Primary osteoarthritis, unspecified site; Z51.5 Encounter for palliative care; Z66 Do not resuscitate; C55 Malignant neoplasm of uterus, part unspecified; C79.9 Secondary malignant neoplasm of unspecified site; Z88.0 Allergy status to penicillin; Z96.659 Presence of unspecified artificial knee joint; Z88.8 Allergy status to other drugs, medicaments and biological substances; Z79.890 Hormone replacement therapy; F17.210 Nicotine dependence, cigarettes, uncomplicated; Z79.4 Long term (current) use of insulin; Z51.11 Encounter for antineoplastic chemotherapy; Z79.899 Other long term (current) drug therapy; Z88.5 Allergy status to narcotic agent; Z98.49 Cataract extraction status, unspecified eye; Z90.49 Acquired absence of other specified parts of digestive tract; Z90.89 Acquired absence of other organs; H54.7 Unspecified visual loss; J44.9 Chronic obstructive pulmonary disease, unspecified; G47.30 Sleep apnea, unspecified; Z68.30 Body mass index [BMI] 30.0-30.9, adult; I10 Essential (primary) hypertension; M19.90 Unspecified osteoarthritis, unspecified site; F32.9 Major depressive disorder, single episode, unspecified; E03.9 Hypothyroidism, unspecified; E66.9 Obesity, unspecified; E11.9 Type 2 diabetes mellitus without complications; Z96.652 Presence of left artificial knee joint
CPT/HCPCS: 36415; 74022; 80053; 83605; 83880; 84484; 85025; 85610; 87040 ×2; 87046; 87324; 87899 ×3; 96360; 99285; A4217; J1956; J7040; 80048; 81001; 82962; 93005; 97110-GP; 97161-GP; 97165-GO; 99282; A9270-GY; J1642; J1644; J1815-GY; J7500